=== PATIENT | female | born 1940 | race Caucasian/White ===

== ENCOUNTER 2018-09-28 21:03 | Emergency (ER) | payer MEDICARE ==
--- NOTE | 2018-09-28 22:57 | ER Document Report ---
ED Medical Screen (RME) - General Chief Complaint: Swallowed Foreign Body Stated Complaint: CHOKING Time Seen by Provider: 09/28/18 22:42 Notes: 78-year-old female with chief complaint of difficulty swallowing and weakness. Daughter states she has been acting somewhat strange today as well, not alert, patient reports to me she has a headache. She is not on a blood thinner. Patient has had esophageal obstruction with dilation in the past but daughter states she has not had any solid food, they tried giving her shake earlier and she sputtered and choked. No fever. No focal weakness. TRAVEL OUTSIDE OF THE [place] IN LAST 30 DAYS: No - Related Data Allergies/Adverse Reactions: cyclobenzaprine [From Flexeril] Allergy (Verified 09/28/18 22:52) Penicillins Allergy (Verified 09/28/18 22:52) Past Medical History - Social History Frequency of alcohol use: None Drug Abuse: None Renal/ Medical History: Denies: Hx Peritoneal Dialysis Physical Exam - Vital signs Vitals: Temp Pulse Resp BP Pulse Ox 97.4 F 79 16 155/97 H 99 09/28/18 21:11 09/28/18 21:11 09/28/18 21:11 09/28/18 21:11 09/28/18 21:11 - General General appearance: Other - Lying in the chair, seems slightly sedated - Respiratory Respiratory status: No respiratory distress Breath sounds: Normal. No: Decreased air movement, Wheezing Course - Re-evaluation Re-evalutation: Attempted to give patient water in triage, she choked, most of it came out of her mouth, she appears to be unable to swallow. Given her weakness, headache, inability to swallow will perform workup including CAT scan of the head and chest x-ray for aspiration. - Vital Signs Vital signs: Temp Pulse Resp BP Pulse Ox 97.4 F 79 16 155/97 H 99 09/28/18 21:11 09/28/18 21:11 09/28/18 21:11 09/28/18 21:11 09/28/18 21:11
--- NOTE | 2018-09-28 23:26 | ER Document Report ---
ED General - General Chief Complaint: Swallowed Foreign Body Stated Complaint: CHOKING Time Seen by Provider: 09/28/18 22:42 Notes: Patient is a 78-year-old female that presents to the emergency department for chief complaint of difficulty swallowing. Patient and the patient's daughter are providing history. Patient did have any symptoms over the course of the past week, where she has had some pain with swallowing. She has a history of esophageal stricture requiring dilatation. It seemed to be worse today, compared to other days this week. She states the pain is in the middle of her chest, and it hurts when she swallows even liquids. She did expectorate some liquids earlier today. The daughter states that she think this may be a symptom of the patient's dementia, that has seemingly been getting worse, she states that earlier today they told her that there going to bring her to the hospital if she would not drink, and then she drank an entire milkshake without any issues or difficulty swallowing at that time. She was seen in [place] in the past and that is when she had her dilatation. At this time the patient denies having any nausea, vomiting, abdominal pain or any recent dysuria or hematuria. Past Medical History: Dementia, diabetes, hypertension Past Surgical History: EGD with dilatation Social History: Denies tobacco, alcohol or drug use Family History: Reviewed and noncontributory for presenting illness Allergies: Reviewed, see documented allergy list. REVIEW OF SYSTEMS: Unless otherwise stated in this report the patient's positive and negative responses for review of systems for constitutional, eyes, ENT, cardiovascular, respiratory, gastrointestinal, neurological, genitourinary, musculoskeletal, and integumentary systems and related systems to the presenting problem are either as stated in the HPI or were not pertinent or were negative for the symptoms and/or complaints related to the presenting medical problem. PHYSICAL EXAMINATION: Vital signs reviewed, nursing noted reviewed. GENERAL: Elderly female, no acute distress HEAD: Atraumatic, normocephalic. EYES: Eyes appear normal, extraocular movements intact, sclera anicteric, conjunctiva are normal. ENT: nares patent, oropharynx clear without exudates. Moist mucous membranes. Controlling her saliva, and swallowing without difficulty NECK: Normal range of motion, supple without lymphadenopathy LUNGS: Breath sounds clear to auscultation bilaterally and equal. No wheezes rales or rhonchi. HEART: Regular rate and rhythm without murmurs ABDOMEN: Soft, obese, nontender, normoactive bowel sounds. No rebound, guarding , or rigidity. No masses appreciated. EXTREMITIES: Nontender, good range of motion, no pitting or edema. NEUROLOGICAL: No focal neurological deficits. Moves all extremities spontaneously Motor and sensory grossly intact on exam. PSYCH: Normal mood, normal affect. SKIN: Warm, Dry, normal turgor, no rashes or lesions noted on exposed skin TRAVEL OUTSIDE OF THE [place] IN LAST 30 DAYS: No - Related Data Allergies/Adverse Reactions: cyclobenzaprine [From Flexeril] Allergy (Verified 09/28/18 22:52) Penicillins Allergy (Verified 09/28/18 22:52) Past Medical History - Social History Smoking Status: Never Smoker Frequency of alcohol use: None Drug Abuse: None Family History: Reviewed & Not Pertinent Patient has suicidal ideation: No Patient has homicidal ideation: No Renal/ Medical History: Denies: Hx Peritoneal Dialysis Physical Exam - Vital signs Vitals: Temp Pulse Resp BP Pulse Ox 97.4 F 79 16 155/97 H 99 09/28/18 21:11 09/28/18 21:11 09/28/18 21:11 09/28/18 21:11 09/28/18 21:11 Course - Re-evaluation Re-evalutation: Patient seen and examined vital signs reviewed. Laboratory data and imaging were ordered as appropriate for the patient's presenting symptoms and complaint, with consideration of any critical or life threatening conditions that may be associated with their obtained history and exam as noted above. Patient was treated with IV fluids, and IV glucagon 2 mg Results were reviewed when available and demonstrated unremarkable blood work, negative chest x-ray, UA was positive for signs of urinary tract infection which may be contributing to the patient's decreased fluid intake, patient given a dose of doxycycline 100 mg in the ED The patient was re-evaluated and was improved, sitting up at bedside, able to swallow pills, Evaluation was most consistent with dysphagia, urinary tract infection, discussed plan of care with the patient patient's daughter is at bedside, they plan to follow-up with gastroenterology, given a prescription for doxycycline. Results were discussed with the patient at this point, after careful consideration I feel that that patient can be discharged from the emergency department, the patient was educated treatments and reasons to return to the emergency department based on their presumed diagnosis as noted above, they were advised to followup with a primary care physician in 2-3 days. Patient was agreeable to plan of care. *Note is created using voice recognition software and may contain spelling, syntax or grammatical errors. Laboratory 09/28/18 09/28/18 09/29/18 23:12 23:12 00:42 WBC 5.5 RBC 3.72 Hgb 8.1 L Hct 25.4 L MCV 68 L MCH 21.8 L MCHC 31.8 L RDW 20.2 H Plt Count 367 Seg Neutrophils % 65.7 Lymphocytes % 24.3 Monocytes % 7.2 Eosinophils % 2.1 Basophils % 0.7 Absolute Neutrophils 3.6 Absolute Lymphocytes 1.3 Absolute Monocytes 0.4 Absolute Eosinophils 0.1 Absolute Basophils 0.0 Sodium 134.3 L Potassium 3.9 Chloride 91 L Carbon Dioxide 29 Anion Gap 14 BUN 15 Creatinine 1.48 H Est GFR ( Amer) 41 L Est GFR (Non-Af Amer) 34 L Glucose 99 Calcium 10.1 Total Bilirubin 0.6 Direct Bilirubin 0.2 Neonat Total Bilirubin Not Reportable Neonat Direct Bilirubin Not Reportable Neonat Indirect Bili Not Reportable AST 33 ALT 27 Alkaline Phosphatase 80 Total Protein 7.3 Albumin 4.2 Urine Color YELLOW Urine Appearance SLIGHTLY-CLOUDY Urine pH 6.0 Ur Specific [place] 1.005 Urine Protein NEGATIVE Urine Glucose (UA) NEGATIVE Urine Ketones NEGATIVE Urine Blood NEGATIVE Urine Nitrite NEGATIVE Urine Bilirubin NEGATIVE Urine Urobilinogen NEGATIVE Ur Leukocyte Esterase LARGE H Urine WBC (Auto) 11 Urine Bacteria (Auto) 1+ Squamous Epi Cells Auto 10 Urine Mucus (Auto) RARE Urine Ascorbic Acid NEGATIVE Chest X-Ray 09/28/18 22:51 IMPRESSION: No acute disease. Head CT 09/28/18 22:51 IMPRESSION: No acute intracranial hemorrhage. Mild chronic ischemic changes. - Vital Signs Vital signs: Temp Pulse Resp BP Pulse Ox 98.6 F 73 16 161/74 H 97 09/29/18 01:44 09/29/18 01:44 09/29/18 01:44 09/29/18 01:44 09/29/18 01:44 - Laboratory Result Diagrams: 09/28/18 23:12 09/28/18 23:12 Laboratory results interpreted by me: 09/28/18 09/28/18 09/29/18 23:12 23:12 00:42 Hgb 8.1 L Hct 25.4 L MCV 68 L MCH 21.8 L MCHC 31.8 L RDW 20.2 H Sodium 134.3 L Chloride 91 L Creatinine 1.48 H Est GFR ( Amer) 41 L Est GFR (Non-Af Amer) 34 L Ur Leukocyte Esterase LARGE H Discharge - Discharge Clinical Impression: Dysphagia Qualifiers: Dysphagia type: unspecified Qualified Code(s): R13.10 - Dysphagia, unspecified UTI (urinary tract infection) Qualifiers: Urinary tract infection type: site unspecified Hematuria presence: with hematuria Qualified Code(s): N39.0 - Urinary tract infection, site not specified Condition: Stable Disposition: HOME, SELF-CARE Instructions: Urinary Tract Infection ([facility]) Additional Instructions: Please return to the emergency department if you have any worsening, or concern of your symptoms. Please return to the emergency department if you develop chest pain, difficulty breathing, severe abdominal pain, or ongoing vomiting. Please follow-up with your primary care physician in 2-3 days and any other recommended physicians. If prescribed, take all medications as directed. If you have any questions or concerns do not hesitate to return the emergency department for evaluation. Please follow-up in [place], if you continue to have difficulty swallowing, please take the antibiotic as prescribed, for the urinary tract infection. Prescriptions: Doxycycline Hyclate 100 mg PO BID #14 capsule Referrals: DEBBIE WADDELL MD [COMMUNITY BASED STAFF] - Follow up tomorrow (or your primary care. ) DMITRY EGAN MD [ACTIVE STAFF] - Follow up as needed (gastroenterology )
[2018-09-28 23:33] LABS: ABSOLUTE EOSINOPHILS # (AUTO) 0.1 10^3/uL (0.0-0.6); ABSOLUTE LYMPHOCYTES (AUTO) 1.3 10^3/uL (0.5-4.7); ABSOLUTE MONOCYTES (AUTO) 0.4 10^3/uL (0.1-1.4); ABSOLUTE NEUT (AUTO) 3.6 10^3/uL (1.7-8.2); BASOPHILS % (AUTO) 0.7 % (0-2); EOSINOPHILS % (AUTO) 2.1 % (0-6); HEMATOCRIT 25.4 % (36.0-47.0); HEMOGLOBIN 8.1 g/dL (12.0-15.5); LYMPHOCYTES % (AUTO) 24.3 % (13-45); MEAN CORPUSCULAR HEMOGLOBIN 21.8 pg (27.0-33.4); MEAN CORPUSCULAR HGB CONC 31.8 g/dL (32.0-36.0); MEAN CORPUSCULAR VOLUME 68 fl (80-97); MONOCYTES % (AUTO) 7.2 % (3-13); PLATELET COUNT 367 10^3/uL (150-450); RED BLOOD COUNT 3.72 10^6/uL (3.72-5.28); RED CELL DISTRIBUTION WIDTH 20.2 % (11.5-14.0); SEGMENTED NEUTROPHILS % (AUTO) 65.7 % (42-78); TOTAL CELLS COUNTED % (AUTO) 100 %; WHITE BLOOD COUNT 5.5 10^3/uL (4.0-10.5)
--- NOTE | 2018-09-28 23:39 | RADIOLOGY REPORT (SQ) ---
EXAM DESCRIPTION: CT HEAD WITHOUT IV CONTRAST COMPLETED DATE/TME: 09/28/2018 22:51 CLINICAL HISTORY: 78 years, Female, headache, weakness, can't swallow This exam was performed according to our departmental dose-optimization program which includes automated exposure control, adjustment of the mA and/or kVp according to patient size and/or use of iterative reconstruction technique where applicable. Findings: No acute intracranial hemorrhage, mass effect or midline shift. No extra-axial fluid collections. Ventricles and subarachnoid spaces are mildly dilated consistent with cerebral atrophy. Mild patchy hypodense areas in the periventricular white matter of both cerebral hemispheres consistent with chronic small vessel ischemic changes. Visualized paranasal sinuses and the mastoid air cells are clear. The skull is intact. IMPRESSION: No acute intracranial hemorrhage. Mild chronic ischemic changes.
--- NOTE | 2018-09-28 23:40 | RADIOLOGY REPORT (SQ) ---
EXAM DESCRIPTION: XR CHEST 1 VIEW COMPLETED DATE/TME: 09/28/2018 22:51 CLINICAL HISTORY: 78 years, Female, ? aspiration Findings: The heart is not enlarged. No consolidation or pleural effusion. No pulmonary edema or pneumothorax. IMPRESSION: No acute disease.
[2018-09-28 23:54] LABS: ALANINE AMINOTRANSFERASE 27 U/L (9-52); ALBUMIN 4.2 g/dL (3.5-5.0); ALKALINE PHOSPHATASE 80 U/L (38-126); ANION GAP 14 (5-19); ASPARTATE AMINO TRANSFERASE 33 U/L (14-36); BILIRUBIN,DIRECT 0.2 mg/dL (0.0-0.4); BILIRUBIN,TOTAL 0.6 mg/dL (0.2-1.3); BLOOD UREA NITROGEN 15 mg/dL (7-20); CALCIUM 10.1 mg/dL (8.4-10.2); CARBON DIOXIDE 29 mmol/L (22-30); CHLORIDE 91 mmol/L (98-107); GLUCOSE 99 mg/dL (75-110); POTASSIUM 3.9 mmol/L (3.6-5.0); SODIUM 134.3 mmol/L (137-145); TOTAL PROTEIN 7.3 g/dL (6.3-8.2)
[2018-09-29] MEDS ORDERED: GLUCAGON,HUMAN RECOMB 1 MG INJ IV STA (00:05)
[2018-09-29] MEDS ORDERED: NORMAL SALINE 500 ML IV ONE (00:05)
[2018-09-29 00:53] LABS: APPEARANCE,URINE SLIGHTLY-CLOUDY; BILIRUBIN,URINE NEGATIVE (NEGATIVE); COLOR,URINE YELLOW; GLUCOSE, URINE NEGATIVE (NEGATIVE); KETONES,URINE NEGATIVE (NEGATIVE); LEUKOCYTE ESTERASE,URINE LARGE (NEGATIVE); NITRITE,URINE NEGATIVE (NEGATIVE); PROTEIN,URINE NEGATIVE (NEGATIVE); URINE SPECIFIC GRAVITY 1.005; UROBILINOGEN,URINE NEGATIVE mg/dL (<2.0)
[2018-09-29] MEDS ORDERED: DOXYCYCLINE HYCLATE 100 MG TABLET PO ONE (01:12)
[2018-09-29 01:45] VITALS: BP 161/74
== END 2018-09-29 01:45 | disposition home or self-care (01) ==
LOC: ER 21:03
DX: R13.10 Dysphagia, unspecified (principal); N39.0 Urinary tract infection, site not specified; R31.9 Hematuria, unspecified; R07.9 Chest pain, unspecified; F03.90 Unspecified dementia, unspecified severity, without behavioral disturbance, psychotic disturbance, mood disturbance, and anxiety; E11.9 Type 2 diabetes mellitus without complications; I10 Essential (primary) hypertension; Z87.19 Personal history of other diseases of the digestive system; Z98.890 Other specified postprocedural states; Z88.8 Allergy status to other drugs, medicaments and biological substances; Z88.0 Allergy status to penicillin
CPT/HCPCS: 99284; 96361; 96374; 36415; 87086; 85025; 80053; 81001; 71045; 70450; A9270; J1610; J7040

== ENCOUNTER 2018-10-04 19:45 | Emergency (ER) | payer MEDICARE ==
[2018-10-04] MEDS ORDERED: MAG HYDROX/AL HYDROX/SIMETH SUSP 30 ML UDCUP PO ONE (23:14)
[2018-10-04] MEDS ORDERED: LIDOCAINE 2% VISCOUS SOLN 20 ML UDCUP PO ONE (23:14)
[2018-10-04] MEDS ORDERED: METOCLOPRAMIDE HCL ORAL SOLN 10 MG/10 ML UDCUP PO ONE (23:14)
--- NOTE | 2018-10-04 23:15 | ER Document Report ---
ED General - General Chief Complaint: Difficulty Swallowing Stated Complaint: DIFFICULTY SWALLOWING Time Seen by Provider: 10/04/18 20:39 Cannot obtain history due to: Dementia Notes: Patient is a 78-year-old female with a past medical history of dementia, hypertension, presents to the emergency department with concerns of intermittent inability to swallow and complaints of throat pain. She was seen in the emergency department 4 days ago for the same complaint, apparently has been eating and drinking without difficulty since that time but still continues intermittently complain that she feels something is stuck in her throat that she cannot swallow. History is substantially limited as the granddaughter who is with the patient is not regularly with her and the patient is demented. She currently believes the year is 1912 and is unable to provide any reasonable history. TRAVEL OUTSIDE OF THE [place] IN LAST 30 DAYS: No - Related Data Allergies/Adverse Reactions: cyclobenzaprine [From Flexeril] Allergy (Verified 09/28/18 22:52) Penicillins Allergy (Verified 09/28/18 22:52) Past Medical History - General Information source: Patient, Relative - Social History Smoking Status: Never Smoker Frequency of alcohol use: None Drug Abuse: None Lives with: Family Family History: Reviewed & Not Pertinent Patient has suicidal ideation: No Patient has homicidal ideation: No Renal/ Medical History: Denies: Hx Peritoneal Dialysis Review of Systems - Review of Systems Notes: Constitutional: Negative for fever. HENT: Positive for dysphasia, sensation of foreign body in the throat Eyes: Negative for visual changes. Cardiovascular: Negative for chest pain. Respiratory: Negative for shortness of breath. Gastrointestinal: Negative for abdominal pain, vomiting or diarrhea. Genitourinary: Negative for dysuria. Musculoskeletal: Negative for back pain. Skin: Negative for rash. Neurological: Negative for headaches, weakness or numbness. 10 point ROS negative except as marked above and in HPI. Physical Exam - Vital signs Vitals: Temp Pulse Resp BP Pulse Ox 97.6 F 98 20 158/89 H 100 10/04/18 19:56 10/04/18 19:56 10/04/18 19:56 10/04/18 19:56 10/04/18 19:56 Interpretation: Hypertensive Notes: PHYSICAL EXAMINATION: GENERAL: Well-appearing, well-nourished and in no acute distress. HEAD: Atraumatic, normocephalic. EYES: Pupils equal round and reactive to light, extraocular movements intact, sclera anicteric, conjunctiva are normal. ENT: nares patent, oropharynx clear without exudates. Moist mucous membranes. NECK: Normal range of motion, supple without lymphadenopathy, no stridor, no apparent difficulty swallowing LUNGS: Breath sounds clear to auscultation bilaterally and equal. No wheezes rales or rhonchi. HEART: Regular rate and rhythm without murmurs ABDOMEN: Soft, nontender, normoactive bowel sounds. No guarding, no rebound. No masses appreciated. EXTREMITIES: Normal range of motion, no pitting or edema. No cyanosis. NEUROLOGICAL: No focal neurological deficits. Moves all extremities spontaneously and on command. PSYCH: Alert, oriented only to person SKIN: Warm, Dry, normal turgor, no rashes or lesions noted. Course - Re-evaluation Re-evalutation: 10/04/18 23:15 Patient presents with reports that she is unable to swallow although this appears intermittent based on family history. Of note the patient was swallowing without any apparent difficulty when I walk past the room to go see another patient and then when I walked into the room the patient began grabbing in her throat, stating that she feels like she could not swallow. The nurse did attempt a swallow study and the patient spit the water back out of her without making any attempt to swallow. I do suspect that some of this is related to the patient's underlying dementia as she is profoundly demented on exam. She thinks it is 1914, does not know the city that were currently reside in. I do not see an indication to repeat labs today, family has declined repeat labs. Patient ready has scheduled follow-up with GI for endoscopy in 48 hours. I recommended soft, pured liquids at home. - Vital Signs Vital signs: Temp Pulse Resp BP Pulse Ox 97.7 F 89 18 160/81 H 100 10/04/18 23:28 10/04/18 23:28 10/04/18 23:28 10/04/18 23:28 10/04/18 23:28 Discharge - Discharge Clinical Impression: Dysphagia Qualifiers: Dysphagia type: unspecified Qualified Code(s): R13.10 - Dysphagia, unspecified Dementia Qualifiers: Dementia type: unspecified type Dementia behavioral disturbance: with behavioral disturbance Qualified Code(s): F03.91 - Unspecified dementia with behavioral disturbance Condition: Good Disposition: HOME, SELF-CARE Additional Instructions: Please follow-up with the GI doctor regarding your difficulty swallowing as you may need a repeat endoscopy and dilation. In the interim please try to eat soft foods and liquids. Crush medications in the substances to be able to take them.
[2018-10-04 23:29] VITALS: BP 160/81
== END 2018-10-04 23:48 | disposition home or self-care (01) ==
LOC: ER 19:45
DX: R13.10 Dysphagia, unspecified (principal); F03.91 Unspecified dementia, unspecified severity, with behavioral disturbance
CPT/HCPCS: 99284; J3490; A9270

== ENCOUNTER 2018-10-06 12:23 | Emergency (ER) | payer MEDICARE ==
--- NOTE | 2018-10-06 12:54 | ER Document Report ---
ED General - General Mode of Arrival: Medic Information source: Patient TRAVEL OUTSIDE OF THE [place] IN LAST 30 DAYS: No <CARLOS ROA - Last Filed: 10/06/18 14:23> <ABILIO ALDRICH - Last Filed: 10/06/18 16:39> - General Stated Complaint: FALL,RIGHT HIP,SHOULDER PAIN Time Seen by Provider: 10/06/18 12:49 Notes: 78-year-old female who presents to the emergency department today with complaints of pain basically all over. Patient is demented so history is limited. Per EMS, there was a fall prior to their arrival. Patient complains of a headache, neck pain, bilateral shoulder pain, bilateral wrist pain, and bilateral hip pain. Patient moans when touched in any of these locations. ( CARLOS ROA) 78-year-old female patient with dementia is brought the emergency room after suffering a fall at home by EMS. Family did not come in with her at this time. She initially would not really try to answer any questions until she was made uncomfortable. Then she would respond. She complains of headache which she did on her prior to ER visits recently. She complains of severe pain when her body is palpated anywhere. Specifically when I hold her wrist to examine it she pulls away almost violently suggesting there really is no injury to her shoulders elbows or wrists. She also reacts similarly to palpation and manipulation of the hips and knees. When the bed was slightly elevated she cried out in pain from her back hurting. (ABILIO ALDRICH) - Related Data Allergies/Adverse Reactions: cyclobenzaprine [From Flexeril] Allergy (Verified 09/28/18 22:52) Penicillins Allergy (Verified 09/28/18 22:52) Past Medical History - General Information source: [facility] Records Cannot obtain history due to: Dementia - Social History Smoking Status: Unknown if Ever Smoked Lives with: Family Family History: Reviewed & Not Pertinent - Past Medical History Cardiac Medical History: Reports: Hx Hypercholesterolemia Endocrine Medical History: Reports: Hx Hypothyroidism GI Medical History: Reports: Hx Gastroesophageal Reflux Disease <CARLOS ROA - Last Filed: 10/06/18 14:23> Review of Systems - Review of Systems -: Yes ROS unobtainable due to patient's medical condition - demented <CARLOS ROA - Last Filed: 10/06/18 14:23> Physical Exam <CARLOS ROA - Last Filed: 10/06/18 14:23> <ABILIO ALDRICH - Last Filed: 10/06/18 16:39> - Vital signs Vitals: Resp 20 10/06/18 12:33 - Notes Notes: Physical Exam: General: Demented. HEENT: Normocephalic. Atraumatic. PERRL. Extraocular movements intact. Oropharynx clear. Neck: Supple. Non-tender. Respiratory: No respiratory distress. Clear and equal breath sounds bilaterally. Cardiovascular: Regular rate and rhythm. Abdominal: Obese. Non-tender. No distension. Normal Bowel Sounds. Back: Non-tender. No deformity or step off. Extremities: Upper extremities: Pulls left forearm towards chest against resistance without difficulty. Screams out with palpation of bilateral shoulders and wrists. Lower extremities: Screams out with pain of palpation of bilateral hips. Pelvic sling removed and there was no pain when pressure was released. Neurological: Demented Psychological: Demented Skin: Warm. Dry. Normal color. (CARLOS ROA) Course <CARLOS ROA - Last Filed: 10/06/18 14:23> - Laboratory Result Diagrams: 10/06/18 14:36 10/06/18 14:36 - Diagnostic Test Radiology reviewed: Image reviewed, Reports reviewed - X-rays of the lumbar sacral spine, both hips, both shoulders, and pelvis do not show fractures. - EKG Interpretation by Me EKG shows normal: Sinus rhythm, [place], QRS Complexes, ST-T Waves. abnormal: Intervals - Borderline prolonged QT interval Rate: Normal - 96 Rhythm: NSR <ABILIO ALDRICH - Last Filed: 10/06/18 16:39> - Re-evaluation Re-evalutation: 10/06/18 16:38 Patient's family member has arrived now. She reports that the patient complains of pain all over all the time and this is nothing new. She cannot give me much details about the fall. She does relate that the patient has moved into this area recently. Her primary care provider is in [place], [place], as it was a provider from the [facility] that moved to [place]. She is working to try to obtain a primary care provider in this area. (ABILIO ALDRICH) - Vital Signs Vital signs: Temp Pulse Resp BP Pulse Ox 100 15 179/79 H 98 10/06/18 13:00 10/06/18 14:00 10/06/18 14:00 10/06/18 14:00 - Laboratory Laboratory results interpreted by me: 10/06/18 10/06/18 14:36 14:36 RBC 3.55 L Hgb 7.8 L Hct 24.4 L MCV 69 L MCH 22.1 L RDW 20.5 H Creatinine 1.49 H Est GFR ( Amer) 41 L Est GFR (Non-Af Amer) 34 L Creatine Kinase 335 H Discharge <CARLOS ROA - Last Filed: 10/06/18 14:23> <ABILIO ALDRICH - Last Filed: 10/06/18 16:39> - Discharge Clinical Impression: Generalized pain Fall Qualifiers: Encounter type: initial encounter Qualified Code(s): W19.XXXA - Unspecified fall, initial encounter Condition: Stable Disposition: HOME, SELF-CARE Additional Instructions: Your physical exam today showed you were having pain and nearly every part of your body. X-rays of your shoulders, hips, lumbar spine and pelvis did not show fractures. You should continue your regular medications when you return home. Take Tylenol for additional pain relief if needed. Follow-up with a local medical doctor if not improving. RETURN TO THE EMERGENCY ROOM IF ANY NEW OR WORSENING SYMPTOMS. Scribe Attestation: 10/06/18 14:11 I personally performed the services described in the documentation, reviewed and edited the documentation which was dictated to the scribe in my presence, and it accurately records my words and actions. (ABILIO ALDRICH) Scribe Documentation - Scribe Written by Almazibe:: Farzad Duggan, 10/06/2018 1407 acting as scribe for :: Lyric <CARLOS ROA - Last Filed: 10/06/18 14:23>
--- NOTE | 2018-10-06 13:33 | RADIOLOGY REPORT (SQ) ---
EXAM DESCRIPTION: SHOULDER RIGHT 2 OR MORE VIEWS COMPLETED DATE/TIME: 10/06/2018 1:19 pm REASON FOR STUDY: pain with palpation, fall COMPARISON: None. NUMBER OF VIEWS: Three views. TECHNIQUE: Internal rotation, external rotation, and Y view images acquired of the right shoulder. LIMITATIONS: None. FINDINGS: MINERALIZATION: Normal. BONES: No acute fracture or dislocation. No worrisome bone lesions. JOINTS: No dislocation. VISUALIZED LUNGS AND RIBS: No pneumothorax. No rib fracture. SOFT TISSUES: No radiopaque foreign body. OTHER: No other significant finding. IMPRESSION: NEGATIVE STUDY OF THE RIGHT SHOULDER. NO RADIOGRAPHIC EVIDENCE OF ACUTE INJURY. TECHNICAL DOCUMENTATION: JOB ID: [id number] [employer]- All Rights Reserved Reading location - IP/workstation name: [email or web address]
--- NOTE | 2018-10-06 13:33 | RADIOLOGY REPORT (SQ) ---
EXAM DESCRIPTION: HIP RIGHT AP/LATERAL COMPLETED DATE/TIME: 10/06/2018 1:19 pm REASON FOR STUDY: pain with palpation, fall COMPARISON: None. NUMBER OF VIEWS: Two views. TECHNIQUE: AP pelvis and additional frog-leg view of the right hip. LIMITATIONS: None. FINDINGS: MINERALIZATION: Normal. RIGHT HIP: No fracture or dislocation. No worrisome bone lesions. LEFT HIP: No fracture or dislocation. No worrisome bone lesions. PUBIS AND ISCHIUM: No fracture. PELVIS: No fracture. SACRUM: No fracture or dislocation. No worrisome bone lesions. LOWER LUMBAR SPINE: No fracture or dislocation. No worrisome bone lesions. No significant disc disea se. SOFT TISSUES: No findings. OTHER: No other significant finding. IMPRESSION: NEGATIVE STUDY OF THE RIGHT HIP. NO RADIOGRAPHIC EVIDENCE OF ACUTE INJURY. TECHNICAL DOCUMENTATION: JOB ID: [id number] [employer]- All Rights Reserved Reading location - IP/workstation name: [email or web address]
[2018-10-06 15:01] LABS: ABSOLUTE LYMPHOCYTES (AUTO) 1.5 10^3/uL (0.5-4.7); ABSOLUTE MONOCYTES (AUTO) 0.5 10^3/uL (0.1-1.4); ABSOLUTE NEUT (AUTO) 3.5 10^3/uL (1.7-8.2); BASOPHILS % (AUTO) 0.6 % (0-2); EOSINOPHILS % (AUTO) 0.6 % (0-6); HEMATOCRIT 24.4 % (36.0-47.0); LYMPHOCYTES % (AUTO) 27.8 % (13-45); MEAN CORPUSCULAR HEMOGLOBIN 22.1 pg (27.0-33.4); MEAN CORPUSCULAR HGB CONC 32.1 g/dL (32.0-36.0); MEAN CORPUSCULAR VOLUME 69 fl (80-97); MONOCYTES % (AUTO) 8.5 % (3-13); PLATELET COUNT 357 10^3/uL (150-450); RED BLOOD COUNT 3.55 10^6/uL (3.72-5.28); RED CELL DISTRIBUTION WIDTH 20.5 % (11.5-14.0); SEGMENTED NEUTROPHILS % (AUTO) 62.5 % (42-78); TOTAL CELLS COUNTED % (AUTO) 100 %; WHITE BLOOD COUNT 5.6 10^3/uL (4.0-10.5)
[2018-10-06 15:10] LABS: APPEARANCE,URINE CLEAR; BILIRUBIN,URINE NEGATIVE (NEGATIVE); COLOR,URINE STRAW; GLUCOSE, URINE NEGATIVE (NEGATIVE); KETONES,URINE NEGATIVE (NEGATIVE); LEUKOCYTE ESTERASE,URINE NEGATIVE (NEGATIVE); NITRITE,URINE NEGATIVE (NEGATIVE); PROTEIN,URINE NEGATIVE (NEGATIVE); URINE SPECIFIC GRAVITY 1.003; UROBILINOGEN,URINE NEGATIVE mg/dL (<2.0)
[2018-10-06 15:16] LABS: HEMOGLOBIN 7.8 g/dL (12.0-15.5)
[2018-10-06 15:23] LABS: ALANINE AMINOTRANSFERASE 27 U/L (9-52); ALBUMIN 3.8 g/dL (3.5-5.0); ALKALINE PHOSPHATASE 76 U/L (38-126); ANION GAP 14 (5-19); ASPARTATE AMINO TRANSFERASE 34 U/L (14-36); BILIRUBIN,DIRECT 0.2 mg/dL (0.0-0.4); BILIRUBIN,TOTAL 0.5 mg/dL (0.2-1.3); BLOOD UREA NITROGEN 9 mg/dL (7-20); CALCIUM 8.6 mg/dL (8.4-10.2); CARBON DIOXIDE 29 mmol/L (22-30); CHLORIDE 98 mmol/L (98-107); CREATINE KINASE 335 U/L (30-135); GLUCOSE 85 mg/dL (75-110); POTASSIUM 3.7 mmol/L (3.6-5.0); SODIUM 140.7 mmol/L (137-145); TOTAL PROTEIN 6.6 g/dL (6.3-8.2)
--- NOTE | 2018-10-06 15:30 | RADIOLOGY REPORT (SQ) ---
EXAM DESCRIPTION: L SPINE WHOLE COMPLETED DATE/TIME: 10/06/2018 3:13 pm REASON FOR STUDY: Fall, dementia,c/o back pain, bilat hip pain COMPARISON: None. NUMBER OF VIEWS: Five views including obliques. TECHNIQUE: AP, lateral, oblique, and sacral radiographic images acquired of the lumbar spine. LIMITATIONS: None. FINDINGS: MINERALIZATION: Normal. SEGMENTATION: Normal. No transitional anatomy. ALIGNMENT: Mild levoscoliosis. Grade 1 anterolisthesis of L4 on L5. VERTEBRAE: Anterior wedging of L1 that does not appear to be acute. DISCS: All the lumbar disc spaces are narrowed to some degree, most prominently at L2-3. Small radha nal osteophytes are present in the upper lumbar spine. POSTERIOR ELEMENTS: Hypertrophic facet changes from L4-S1. HARDWARE: None in the spine. PARASPINAL SOFT TISSUES: Normal. PELVIS: Intact as visualized. No fractures or worrisome bone lesions. SI joints intact. OTHER: No other significant finding. IMPRESSION: Scoliosis, anterolisthesis of L4 on L5, multilevel degenerative disc disease and spondyl osis. Facet arthropathy. TECHNICAL DOCUMENTATION: JOB ID: [id number]- All Rights Reserved Reading location - IP/workstation name: [email or web address]
--- NOTE | 2018-10-06 15:31 | RADIOLOGY REPORT (SQ) ---
EXAM DESCRIPTION: HIP LEFT AP/LATERAL COMPLETED DATE/TIME: 10/06/2018 3:14 pm REASON FOR STUDY: Fall, dementia,c/o back pain, bilat hip pain COMPARISON: None. NUMBER OF VIEWS: Two views. TECHNIQUE: AP pelvis and additional frog-leg view of the left hip. LIMITATIONS: None. FINDINGS: MINERALIZATION: Normal. LEFT HIP: No fracture or dislocation. No worrisome bone lesions. RIGHT HIP: No fracture or dislocation. No worrisome bone lesions. PUBIS AND ISCHIUM: No fracture. PELVIS: No fracture. SACRUM: No fracture or dislocation. No worrisome bone lesions. LOWER LUMBAR SPINE: No fracture or dislocation. No worrisome bone lesions. No significant disc disea se. SOFT TISSUES: No findings. OTHER: No other significant finding. IMPRESSION: NEGATIVE STUDY OF THE LEFT HIP AND PELVIS. NO RADIOGRAPHIC EVIDENCE OF ACUTE INJURY. TECHNICAL DOCUMENTATION: JOB ID: [id number] [employer]- All Rights Reserved Reading location - IP/workstation name: [email or web address]
--- NOTE | 2018-10-06 15:32 | RADIOLOGY REPORT (SQ) ---
EXAM DESCRIPTION: SHOULDER LEFT 2 OR MORE VIEWS COMPLETED DATE/TIME: 10/06/2018 3:14 pm REASON FOR STUDY: Fall, complains of bilateral shoulder pain COMPARISON: None. NUMBER OF VIEWS: Three views. TECHNIQUE: Internal rotation, external rotation, and Y view images acquired of the left shoulder. LIMITATIONS: None. FINDINGS: MINERALIZATION: Normal. BONES: No acute fracture or dislocation. No worrisome bone lesions. JOINTS: Mild glenohumeral degenerative joint changes. Mild acromioclavicular degenerative joint mason ges. VISUALIZED LUNGS AND RIBS: No pneumothorax. No rib fracture. SOFT TISSUES: No radiopaque foreign body. OTHER: No other significant finding. IMPRESSION: Degenerative joint disease. No acute abnormality. TECHNICAL DOCUMENTATION: JOB ID: [id number] [employer]- All Rights Reserved Reading location - IP/workstation name: [email or web address]
[2018-10-06 15:51] LABS: CREATINE KINASE MB 3.55 ng/mL (<4.55); TROPONIN I 0.033 ng/mL
[2018-10-06 17:14] VITALS: BP 157/82
--- NOTE | 2018-10-06 18:10 | EKG REPORT ---
SEVERITY:- BORDERLINE ECG - SINUS RHYTHM BORDERLINE PROLONGED QT INTERVAL : Confirmed by: Samir Johnson MD 06-Oct-2018 18:09:04
== END 2018-10-06 17:09 | disposition home or self-care (01) ==
LOC: ER 12:23
DX: M25.551 Pain in right hip (principal); R51 Headache; M54.2 Cervicalgia; M25.512 Pain in left shoulder; M25.511 Pain in right shoulder; W19.XXXA Unspecified fall, initial encounter
CPT/HCPCS: 36415; 51701; 72110; 80053; 81001; 82550; 82553; 84484; 85025; 93005; 93010; 99284

== ENCOUNTER 2018-11-17 15:54 | Inpatient (IN) | payer MEDICARE ==
[2018-11-17 16:38] LABS: ABSOLUTE LYMPHOCYTES (AUTO) 0.8 10^3/uL (0.5-4.7); ABSOLUTE MONOCYTES (AUTO) 0.5 10^3/uL (0.1-1.4); ABSOLUTE NEUT (AUTO) 8.1 10^3/uL (1.7-8.2); BASOPHILS % (AUTO) 0.2 % (0-2); EOSINOPHILS % (AUTO) 0.2 % (0-6); HEMATOCRIT 29.7 % (36.0-47.0); HEMOGLOBIN 9.1 g/dL (12.0-15.5); LYMPHOCYTES % (AUTO) 8.4 % (13-45); MEAN CORPUSCULAR HEMOGLOBIN 21.9 pg (27.0-33.4); MEAN CORPUSCULAR HGB CONC 30.8 g/dL (32.0-36.0); MEAN CORPUSCULAR VOLUME 71 fl (80-97); MONOCYTES % (AUTO) 5.3 % (3-13); PLATELET COUNT 338 10^3/uL (150-450); RED BLOOD COUNT 4.17 10^6/uL (3.72-5.28); RED CELL DISTRIBUTION WIDTH 19.2 % (11.5-14.0); SEGMENTED NEUTROPHILS % (AUTO) 85.9 % (42-78); TOTAL CELLS COUNTED % (AUTO) 100 %; WHITE BLOOD COUNT 9.5 10^3/uL (4.0-10.5)
[2018-11-17 16:56] LABS: ALANINE AMINOTRANSFERASE 10 U/L (9-52); ALBUMIN 4.6 g/dL (3.5-5.0); ALKALINE PHOSPHATASE 89 U/L (38-126); ANION GAP 8 (5-19); ASPARTATE AMINO TRANSFERASE 24 U/L (14-36); BILIRUBIN,DIRECT 0.4 mg/dL (0.0-0.4); BILIRUBIN,TOTAL 0.8 mg/dL (0.2-1.3); BLOOD UREA NITROGEN 32 mg/dL (7-20); CARBON DIOXIDE 39 mmol/L (22-30); CHLORIDE 94 mmol/L (98-107); GLUCOSE 113 mg/dL (75-110); POTASSIUM 3.8 mmol/L (3.6-5.0); SODIUM 140.5 mmol/L (137-145)
[2018-11-17 17:00] LABS: APPEARANCE,URINE CLEAR; BILIRUBIN,URINE NEGATIVE (NEGATIVE); COLOR,URINE YELLOW; GLUCOSE, URINE NEGATIVE (NEGATIVE); KETONES,URINE NEGATIVE (NEGATIVE); LEUKOCYTE ESTERASE,URINE TRACE (NEGATIVE); NITRITE,URINE NEGATIVE (NEGATIVE); PROTEIN,URINE NEGATIVE (NEGATIVE); URINE SPECIFIC GRAVITY 1.011; UROBILINOGEN,URINE NEGATIVE mg/dL (<2.0)
[2018-11-17 17:03] LABS: ALCOHOL < 10 mg/dL (NONE DETECTED)
[2018-11-17 17:05] LABS: CALCIUM 12.7 mg/dL (8.4-10.2)
[2018-11-17 17:13] LABS: URINE AMPHETAMINES SCREEN NEGATIVE; URINE BARBITURATES SCREEN NEGATIVE; URINE BENZODIAZEPINES SCREEN NEGATIVE; URINE COCAINE SCREEN NEGATIVE; URINE MARIJUANA (THC) SCREEN NEGATIVE; URINE METHADONE SCREEN NEGATIVE; URINE PHENCYCLIDINE SCREEN NEGATIVE
[2018-11-17] MEDS ORDERED: NORMAL SALINE 1000 ML 1,000 ML IV ONE ×2 (17:57→18:28)
--- NOTE | 2018-11-17 17:59 | ER Document Report ---
ED General - General Chief Complaint: Altered Mental Status Stated Complaint: ALTERED MENTAL STATUS Time Seen by Provider: 11/17/18 17:06 Mode of Arrival: Ambulatory Information source: Patient Notes: 78-year-old female with a history of dementia, hypertension who presents to the emergency room with decreased p.o. intake, increased weakness, increased lethargy, decreased interactions. Patient's daughter is at the bedside and states that her baseline is that she does ambulate with a cane but is not that active. But there has been a change from her baseline. They deny any chest pain, shortness of breath. TRAVEL OUTSIDE OF THE [place] IN LAST 30 DAYS: No - HPI Onset: Last week Onset/Duration: Gradual Quality of pain: No pain Severity: None Pain Level: Denies Associated symptoms: denies: Chest pain, Fever, Shortness of breath Exacerbated by: Denies Relieved by: Denies Similar symptoms previously: Yes Recently seen / treated by doctor: No - Related Data Allergies/Adverse Reactions: cyclobenzaprine [From Flexeril] Allergy (Verified 09/28/18 22:52) Penicillins Allergy (Verified 09/28/18 22:52) Past Medical History - General Information source: Patient, Relative - Social History Smoking Status: Unknown if Ever Smoked Cigarette use (# per day): No Chew tobacco use (# tins/day): No Frequency of alcohol use: None Drug Abuse: None Lives with: Family Family History: Reviewed & Not Pertinent Patient has suicidal ideation: No Patient has homicidal ideation: No - Past Medical History Cardiac Medical History: Reports: Hx Hypercholesterolemia Endocrine Medical History: Reports: Hx Hypothyroidism Renal/ Medical History: Denies: Hx Peritoneal Dialysis GI Medical History: Reports: Hx Gastroesophageal Reflux Disease Surgical Hx: Negative Review of Systems - Review of Systems Constitutional: denies: Chills, Fever EENT: No symptoms reported Cardiovascular: No symptoms reported Respiratory: No symptoms reported Gastrointestinal: denies: Abdomen distended, Abdominal pain, Diarrhea Genitourinary: No symptoms reported Female Genitourinary: No symptoms reported Musculoskeletal: No symptoms reported Skin: No symptoms reported Hematologic/Lymphatic: See HPI Physical Exam - Vital signs Vitals: Pulse Resp BP Pulse Ox 75 16 187/87 H 100 11/17/18 15:54 11/17/18 15:54 11/17/18 15:54 11/17/18 15:54 Notes: Physical exam: GENERAL: Weak appearing 78-year-old female, no acute distress HEAD: Atraumatic, normocephalic. EYES: Pupils equal round and reactive to light, extraocular movements intact, sclera anicteric, conjunctiva are normal. ENT: TMs normal, nares patent, oropharynx clear without exudates. Moist mucous membranes. NECK: Normal range of motion, supple without obvious mass or JVD. LUNGS: Breath sounds clear to auscultation bilaterally and equal. No wheezes rales or rhonchi. HEART: Regular rate and rhythm without murmurs, rubs or gallops. ABDOMEN: Soft, normoactive bowel sounds. No tenderness to palpation. No guarding, no rebound. No masses appreciated. EXTREMITIES: Normal range of motion, no pitting or edema. No clubbing or cyanosis. NEUROLOGICAL: Cranial nerves II through XII grossly intact. Normal speech, moving all extremities. PSYCH: She appears to have a blunted affect. SKIN: Warm, Dry, normal turgor, no rashes or lesions noted. Course - Vital Signs Vital signs: Temp Pulse Resp BP Pulse Ox 75 15 187/87 H 100 11/17/18 15:54 11/17/18 17:01 11/17/18 17:00 11/17/18 17:01 - Laboratory Result Diagrams: 11/17/18 16:16 11/17/18 16:16 Laboratory results interpreted by me: 11/17/18 11/17/18 11/17/18 16:16 16:16 16:42 Hgb 9.1 L Hct 29.7 L MCV 71 L MCH 21.9 L MCHC 30.8 L RDW 19.2 H Seg Neutrophils % 85.9 H Lymphocytes % 8.4 L Chloride 94 L Carbon Dioxide 39 H BUN 32 H Creatinine 2.37 H Est GFR ( Amer) 24 L Est GFR (Non-Af Amer) 20 L Glucose 113 H Calcium 12.7 H* Ur Leukocyte Esterase TRACE H - Diagnostic Test Radiology reviewed: Image reviewed, Reports reviewed - EKG Interpretation by Me Rate: Normal Rhythm: NSR - EKG shows normal sinus rhythm with a ventricular rate of 85, no acute ST-T wave changes, QTC 41 Discharge - Discharge Clinical Impression: Acute kidney injury, Hypercalcemia, Dehydration Condition: Stable Disposition: ADMITTED INPATIENT Admitting Provider: Hospitalist - Dr Rosales Unit Admitted: Telemetry
--- NOTE | 2018-11-17 18:18 | RADIOLOGY REPORT (SQ) ---
EXAM DESCRIPTION: CHEST SINGLE VIEW COMPLETED DATE/TIME: 11/17/2018 6:06 pm REASON FOR STUDY: alteerd mental status COMPARISON: 09/28/2018 EXAM PARAMETERS: NUMBER OF VIEWS: One view. TECHNIQUE: Single frontal radiographic view of the chest acquired. RADIATION DOSE: NA LIMITATIONS: None. FINDINGS: LUNGS AND PLEURA: No opacities, masses or pneumothorax. No pleural effusion. MEDIASTINUM AND HILAR STRUCTURES: No masses. Contour normal. HEART AND VASCULAR STRUCTURES: Heart normal in size. Normal vasculature. BONES: No acute findings. HARDWARE: None in the chest. OTHER: No other significant finding. IMPRESSION: NO ACUTE RADIOGRAPHIC FINDING IN THE CHEST. TECHNICAL DOCUMENTATION: JOB ID: [id number] [employer]- All Rights Reserved Reading location - IP/workstation name: [email or web address]
--- NOTE | 2018-11-17 18:35 | EKG REPORT ---
SEVERITY:- ABNORMAL ECG - SINUS RHYTHM LEFT VENTRICULAR HYPERTROPHY : Confirmed by: Samir Johnson MD 17-Nov-2018 18:33:27
--- NOTE | 2018-11-17 18:36 | PDOC H&P ---
History of Present Illness Patient complains of: lethargy, vomiting History of Present Illness: BRADLEY CORREA is a 78 year old female with a past medical history of hypothyroidism, hypertension, hyperlipidemia and vitamin D deficiency who was brought in because of nausea, vomiting and altered mental status. Patient's daughter is uneventful and she says that she visited her mom this morning and she was not at her baseline. Daughter says that patient has some mild memory impairment but is mostly coherent but this morning, patient was able to answer her radius and was not able to sustain a coherent conversation. She says that patient has been having increasing weakness and poor oral intake in the past 3 days along with nausea and vomiting. She says that patient complained of nausea and had nonbilious, nonbloody vomiting after she eats. No fever or chills. No diarrhea. In the ER, patient was noted to have acute renal failure and hypercalcemia. Patient's daughter says that patient has history of vitamin D deficiency and has been taking vitamin D and calcium supplements for a while. Patient is able to tell me her name but does not answer when asked where she is or what month or year it is. She promptly answers to yes or no questions and denies she is in pain. She denies shortness of breath, chest pain or abdominal pain. Past Medical History Cardiac Medical History: Reports: Hyperlipidema Endocrine Medical History: Reports: Hypothyroidism GI Medical History: Reports: Gastroesophageal Reflux Disease Social History Smoking Status: Unknown if Ever Smoked Family History Family History: Reviewed & Not Pertinent Parental Family History Reviewed: Yes - No premature CAD Children Family History Reviewed: No Sibling(s) Family History Reviewed.: No Medication/Allergy Allergies/Adverse Reactions: cyclobenzaprine [From Flexeril] Allergy (Verified 09/28/18 22:52) Penicillins Allergy (Verified 09/28/18 22:52) Review of Systems All systems: reviewed and no additional remarkable complaints except as stated - As mentioned in HPI Physical Exam Vital Signs: Temp Pulse Resp BP Pulse Ox 75 15 187/87 H 100 11/17/18 15:54 11/17/18 17:01 11/17/18 17:00 11/17/18 17:01 Intake & Output 11/16/18 11/17/18 11/18/18 06:59 06:59 06:59 Weight 250 lb 0.067 oz General appearance: PRESENT: no acute distress, well-developed, well-nourished Head exam: PRESENT: atraumatic, normocephalic Eye exam: PRESENT: conjunctiva pink, EOMI, PERRLA. ABSENT: scleral icterus Ear exam: PRESENT: normal external ear exam Mouth exam: PRESENT: moist, tongue midline Neck exam: ABSENT: carotid bruit, JVD, lymphadenopathy, thyromegaly Respiratory exam: PRESENT: clear to auscultation gordon. ABSENT: rales, rhonchi, wheezes Cardiovascular exam: PRESENT: RRR. ABSENT: diastolic murmur, rubs, systolic murmur Pulses: PRESENT: normal dorsalis pedis pul GI/Abdominal exam: PRESENT: normal bowel sounds, soft. ABSENT: distended, guarding, mass, organolmegaly, rebound, tenderness Rectal exam: PRESENT: deferred Musculoskeletal exam: PRESENT: other - Chronic nonpitting bipedal edema Neurological exam: PRESENT: alert, awake, oriented to person, other - Patient is able to show me her name but does not answer when asked where she is or what month or year it is. Results Laboratory Results: 11/17/18 16:16 11/17/18 16:16 11/17/18 11/17/18 11/17/18 16:16 16:16 16:42 WBC 9.5 RBC 4.17 Hgb 9.1 L Hct 29.7 L MCV 71 L MCH 21.9 L MCHC 30.8 L RDW 19.2 H Plt Count 338 Seg Neutrophils % 85.9 H Lymphocytes % 8.4 L Monocytes % 5.3 Eosinophils % 0.2 Basophils % 0.2 Absolute Neutrophils 8.1 Absolute Lymphocytes 0.8 Absolute Monocytes 0.5 Absolute Eosinophils 0.0 Absolute Basophils 0.0 Sodium 140.5 Potassium 3.8 Chloride 94 L Carbon Dioxide 39 H Anion Gap 8 BUN 32 H Creatinine 2.37 H Est GFR ( Amer) 24 L Est GFR (Non-Af Amer) 20 L Glucose 113 H Calcium 12.7 H* Magnesium 2.1 Total Bilirubin 0.8 AST 24 ALT 10 Alkaline Phosphatase 89 Total Protein 8.0 Albumin 4.6 Urine Color YELLOW Urine Appearance CLEAR Urine pH 6.0 Ur Specific Coleman 1.011 Urine Protein NEGATIVE Urine Glucose (UA) NEGATIVE Urine Ketones NEGATIVE Urine Blood NEGATIVE Urine Nitrite NEGATIVE Ur Leukocyte Esterase TRACE H Urine WBC (Auto) 1 Urine RBC (Auto) 1 Impressions: Chest X-Ray 11/17/18 17:57 IMPRESSION: NO ACUTE RADIOGRAPHIC FINDING IN THE CHEST. Assessment & Plan - Diagnosis (1) Acute kidney injury Is this a current diagnosis for this admission?: Yes Plan: Likely prerenal. Patient is a bit dehydrated and is not having poor oral intake abdominal having nausea and vomiting the past few days. We will give another bolus after the first bolus of normal saline the ER. Switch to normal saline at 125 cc thereafter. We will also check FeNa. (2) Hypercalcemia Is this a current diagnosis for this admission?: Yes Plan: Calcium is 12.3. Will check an ionized calcium. Hypercalcemia could be multifactorial from dehydration in the setting of taking chronic calcium supplements. Will check PTH and vitamin D level as well. Continue IV fluids. Will check calcium tomorrow. (3) Dehydration Is this a current diagnosis for this admission?: Yes Plan: IV fluids as mentioned. - Time Time Spent: 30 to 50 Minutes
[2018-11-17] MEDS ORDERED: ONDANSETRON HCL INJ/PF 4 MG/2 ML SDV IV PRN (19:05)
[2018-11-17 21:26] LABS: URINE CREATININE 121.9 mg/dL (15-278)
[2018-11-17] MEDS: HEPARIN SOD (PORCINE) 5,000 UNIT/ML 1 ML SYRINGE SUBCUT SCH (23:02)
[2018-11-18] MEDS: HYDRALAZINE HCL INJ/PF 20 MG/1 ML SDV IV PRN ×2 (00:31→20:18)
[2018-11-18 07:06] LABS: ANION GAP 8 (5-19); BLOOD UREA NITROGEN 30 mg/dL (7-20); CALCIUM 11.4 mg/dL (8.4-10.2); CARBON DIOXIDE 32 mmol/L (22-30); CHLORIDE 102 mmol/L (98-107); FERRITIN 8.03 ng/mL (11.1-264.0); GLUCOSE 92 mg/dL (75-110); POTASSIUM 3.2 mmol/L (3.6-5.0); SODIUM 141.7 mmol/L (137-145)
[2018-11-18 07:20] LABS: ABSOLUTE RETICS # 0.049 10^6/uL (0.028-0.122); RETICULOCYTE COUNT (AUTO) 1.39 % (0.66-2.85)
[2018-11-18 08:06] LABS: IRON(TIBC) < 10.1 ug/dL (37-170)
[2018-11-18] MEDS: HEPARIN SOD (PORCINE) 5,000 UNIT/ML 1 ML SYRINGE SUBCUT SCH ×2 (09:43→21:08)
[2018-11-18] MEDS: NORMAL SALINE 1000 ML 1,000 ML IV PRN (13:04)
--- NOTE | 2018-11-18 15:51 | RADIOLOGY REPORT (SQ) ---
EXAM DESCRIPTION: CT HEAD WITHOUT COMPLETED DATE/TIME: 11/18/2018 12:08 pm REASON FOR STUDY: AMS R41.82 ALTERED MENTAL STATUS, UNSPECIFIED COMPARISON: 09/28/2018 TECHNIQUE: Axial images acquired through the brain without intravenous contrast. Images reviewed wi th bone, brain and subdural windows. Additional sagittal and coronal reconstructions were generated. Images stored on PACS. All CT scanners at this facility use dose modulation, iterative reconstruction, and/or weight based d osing when appropriate to reduce radiation dose to as low as reasonably achievable (ALARA). [facility]: Dose Right [facility]: CareDose [facility]: Dose Right [facility]: Teradose 4D [facility]: Sellplex RADIATION DOSE: mGy. LIMITATIONS: None. FINDINGS: VENTRICLES: Prominent. CEREBRUM: No masses. No hemorrhage. No midline shift. Stable mild areas of low density in the whit e matter most likely due to chronic micro-vascular ischemic change. No evidence for acute infarction . CEREBELLUM: No masses. No hemorrhage. No alteration of density. No evidence for acute infarction. EXTRAAXIAL SPACES: Age-related involutional change. No fluid collections. No masses. ORBITS AND GLOBE: No intra- or extraconal masses. Normal contour of globe without masses. CALVARIUM: No fracture. PARANASAL SINUSES: No fluid or mucosal thickening. SOFT TISSUES: No mass or hematoma. OTHER: No other significant finding. IMPRESSION: Stable chronic changes without evidence of acute intracranial abnormality. EVIDENCE OF ACUTE STROKE: NO. TECHNICAL DOCUMENTATION: JOB ID: [id number] Quality ID # [id number]: Final reports with documentation of one or more dose reduction techniques (e.g., Au tomated exposure control, adjustment of the mA and/or kV according to patient size, use of iterative reconstruction technique) 2010 [employer]- All Rights Reserved Reading location - IP/workstation name: [email or web address]
--- NOTE | 2018-11-18 19:53 | PDOC PROGRESS REPORT ---
Subjective Progress Note for:: 11/18/18 Subjective:: This is a 78 year old female with a past medical history of hypothyroidism, hypertension, hyperlipidemia and vitamin D deficiency who was brought in because of nausea, vomiting and altered mental status who was admitted due to hypercalcemia and acute renal failure. Patient was started on IV fluids. She did clinically improve with fluid resuscitation. Upon encounter this morning, patient was more awake and was more responsive. She is now able to tell me her name and she knows she is in the hospital. She denies any acute complaints. Denies any chest pain, shortness of breath. No abdominal pain. No nausea or vomiting. Reason For Visit: WALESKA,HYPERCALCEMIA,DEHYDRATION Physical Exam Vital Signs: Temp Pulse Resp BP Pulse Ox 98.3 F 89 22 H 168/91 H 100 11/18/18 16:00 11/18/18 16:00 11/18/18 16:00 11/18/18 16:00 11/18/18 16:00 Intake & Output 11/17/18 11/18/18 11/19/18 06:59 06:59 06:59 Intake Total 1000 200 Output Total 400 330 Balance 600 -130 Weight 249 lb 5.485 oz General appearance: PRESENT: no acute distress, well-developed, well-nourished Head exam: PRESENT: atraumatic, normocephalic Eye exam: PRESENT: conjunctiva pink, EOMI, PERRLA. ABSENT: scleral icterus Ear exam: PRESENT: normal external ear exam Neck exam: ABSENT: carotid bruit, JVD, lymphadenopathy, thyromegaly Respiratory exam: PRESENT: clear to auscultation gordon. ABSENT: rales, rhonchi, wheezes Cardiovascular exam: PRESENT: RRR. ABSENT: diastolic murmur, rubs, systolic murmur Pulses: PRESENT: normal dorsalis pedis pul GI/Abdominal exam: PRESENT: normal bowel sounds, soft. ABSENT: distended, guarding, mass, organolmegaly, rebound, tenderness Rectal exam: PRESENT: deferred Neurological exam: PRESENT: alert, awake, oriented to person, oriented to place Results Laboratory Results: 11/17/18 16:16 11/18/18 04:21 11/17/18 11/18/18 11/18/18 18:50 04:21 04:21 Retic Count (auto) 1.39 Absolute Retic 0.049 Sodium 141.7 Potassium 3.2 L Chloride 102 Carbon Dioxide 32 H Anion Gap 8 BUN 30 H Creatinine 2.01 H Est GFR ( Amer) 29 L Est GFR (Non-Af Amer) 24 L Glucose 92 Calcium 11.4 H Iron < 10.1 L TIBC 378 % Saturation UNABLE TO CALCULATE Ferritin 8.03 L Vitamin B12 397.0 Folate 3.20 PTH Intact < 3.4 L Impressions: Chest X-Ray 11/17/18 17:57 IMPRESSION: NO ACUTE RADIOGRAPHIC FINDING IN THE CHEST. Head CT 11/18/18 11:53 IMPRESSION: Stable chronic changes without evidence of acute intracranial abnormality. EVIDENCE OF ACUTE STROKE: NO. Assessment & Plan - Diagnosis (1) Acute kidney injury Is this a current diagnosis for this admission?: Yes Plan: Likely prerenal. Improving. Creatinine has improved to 2.0. Continue IV fluids. We will continue to recheck BMP. (2) Hypercalcemia Is this a current diagnosis for this admission?: Yes Plan: Improved. Continue IV fluids. hypercalcemia could be multifactorial from dehydration in the setting of taking chronic calcium supplements. PTH level is low. With patient's chronic anemia and renal failure, will also send for SPEP and UPEP. (3) Dehydration Is this a current diagnosis for this admission?: Yes Plan: Improved. IV fluids as mentioned. - Time Time Spent with patient: 15-24 minutes
[2018-11-19] MEDS: HYDRALAZINE HCL INJ/PF 20 MG/1 ML SDV IV PRN ×2 (03:59→21:35)
[2018-11-19] MEDS: HEPARIN SOD (PORCINE) 5,000 UNIT/ML 1 ML SYRINGE SUBCUT SCH ×2 (09:41→21:35)
[2018-11-19] MEDS ORDERED: POTASSIUM CHLORIDE 10 MEQ CAPSULE.ER PO ONE ×2 (11:00→13:39)
[2018-11-19] MEDS: NORMAL SALINE 1000 ML 1,000 ML IV PRN ×2 (11:25→21:38)
[2018-11-19] MEDS: FERROUS SULFATE 325 MG TABLET PO SCH (11:56)
[2018-11-19 13:30] LABS: ANION GAP 8 (5-19); BLOOD UREA NITROGEN 22 mg/dL (7-20); CALCIUM 9.7 mg/dL (8.4-10.2); CARBON DIOXIDE 25 mmol/L (22-30); CHLORIDE 106 mmol/L (98-107); GLUCOSE 86 mg/dL (75-110); POTASSIUM 3.3 mmol/L (3.6-5.0); SODIUM 139.3 mmol/L (137-145)
[2018-11-19 17:39] LABS: ANION GAP 7 (5-19); BLOOD UREA NITROGEN 21 mg/dL (7-20); CALCIUM 9.5 mg/dL (8.4-10.2); CARBON DIOXIDE 26 mmol/L (22-30); CHLORIDE 108 mmol/L (98-107); GLUCOSE 109 mg/dL (75-110); POTASSIUM 3.6 mmol/L (3.6-5.0); SODIUM 140.6 mmol/L (137-145)
--- NOTE | 2018-11-19 19:11 | PDOC PROGRESS REPORT ---
Subjective Progress Note for:: 11/19/18 Subjective:: This is a 78 year old female with a past medical history of hypothyroidism, hypertension, hyperlipidemia and vitamin D deficiency who was brought in because of nausea, vomiting and altered mental status who was admitted due to hypercalcemia and acute renal failure. Patient was started on IV fluids. She did clinically improve with fluid resuscitation. Up patient continues to improve clinically. Upon encounter this morning, she is no oriented to person, place and time. She denies any acute complaints. Denies any chest pain, shortness of breath. No abdominal pain. No nausea or vomiting. Potassium came back low this morning. Creatinine has significantly improved. Reason For Visit: WALESKA,HYPERCALCEMIA,DEHYDRATION Physical Exam Vital Signs: Temp Pulse Resp BP Pulse Ox 98.6 F 89 16 175/59 H 100 11/19/18 15:50 11/19/18 15:50 11/19/18 15:50 11/19/18 15:50 11/19/18 15:50 Intake & Output 11/18/18 11/19/18 11/20/18 06:59 06:59 06:59 Intake Total 1000 1540 400 Output Total 400 930 920 Balance 600 610 -520 Weight 249 lb 5.485 oz 253 lb 1.451 oz General appearance: PRESENT: no acute distress, well-developed, well-nourished Head exam: PRESENT: atraumatic, normocephalic Eye exam: PRESENT: conjunctiva pink, EOMI, PERRLA. ABSENT: scleral icterus Ear exam: PRESENT: normal external ear exam Mouth exam: PRESENT: moist, tongue midline Neck exam: ABSENT: carotid bruit, JVD, lymphadenopathy, thyromegaly Respiratory exam: PRESENT: clear to auscultation gordon. ABSENT: rales, rhonchi, wheezes Cardiovascular exam: PRESENT: RRR. ABSENT: diastolic murmur, rubs, systolic murmur Pulses: PRESENT: normal dorsalis pedis pul GI/Abdominal exam: PRESENT: normal bowel sounds, soft. ABSENT: distended, guarding, mass, organolmegaly, rebound, tenderness Rectal exam: PRESENT: deferred Neurological exam: PRESENT: alert, awake, oriented to person, oriented to place, oriented to time, CN II-XII grossly intact. ABSENT: motor sensory deficit Results Laboratory Results: 11/17/18 16:16 11/19/18 17:07 11/19/18 11/19/18 12:51 17:07 Sodium 139.3 140.6 Potassium 3.3 L 3.6 Chloride 106 108 H Carbon Dioxide 25 26 Anion Gap 8 7 BUN 22 H 21 H Creatinine 1.54 H 1.65 H Est GFR ( Amer) 39 L 36 L Est GFR (Non-Af Amer) 32 L 30 L Glucose 86 109 Calcium 9.7 9.5 Impressions: Chest X-Ray 11/17/18 17:57 IMPRESSION: NO ACUTE RADIOGRAPHIC FINDING IN THE CHEST. Head CT 11/18/18 11:53 IMPRESSION: Stable chronic changes without evidence of acute intracranial abnormality. EVIDENCE OF ACUTE STROKE: NO. Assessment & Plan - Diagnosis (1) Acute kidney injury Is this a current diagnosis for this admission?: Yes Plan: Likely prerenal. Resolving. Creatinine has improved to 1.5. Decrease IV fluids to 75 cc/hr. (2) Hypercalcemia Is this a current diagnosis for this admission?: Yes Plan: Resolved. Continue IV fluids. Hypercalcemia could be multifactorial from dehydration in the setting of taking chronic calcium supplements. PTH level is low. (3) Dehydration Is this a current diagnosis for this admission?: Yes Plan: Improved. IV fluids as mentioned. (4) Hypokalemia Is this a current diagnosis for this admission?: Yes Plan: Replace with p.o. potassium. Repeat BMP. - Time Time Spent with patient: 15-24 minutes
[2018-11-20] MEDS: HYDRALAZINE HCL INJ/PF 20 MG/1 ML SDV IV PRN (05:08)
[2018-11-20 05:23] LABS: ANION GAP 6 (5-19); BLOOD UREA NITROGEN 18 mg/dL (7-20); CALCIUM 9.1 mg/dL (8.4-10.2); CARBON DIOXIDE 24 mmol/L (22-30); CHLORIDE 113 mmol/L (98-107); GLUCOSE 91 mg/dL (75-110); POTASSIUM 3.6 mmol/L (3.6-5.0); SODIUM 142.6 mmol/L (137-145)
[2018-11-20] MEDS: FERROUS SULFATE 325 MG TABLET PO SCH (09:10)
[2018-11-20] MEDS: HEPARIN SOD (PORCINE) 5,000 UNIT/ML 1 ML SYRINGE SUBCUT SCH ×2 (09:10→22:05)
[2018-11-20] MEDS: NORMAL SALINE 1000 ML 1,000 ML IV PRN (09:11)
[2018-11-20] MEDS ORDERED: HYDROCHLOROTHIAZIDE PO SCH (10:00)
[2018-11-20] MEDS ORDERED: BISOPROLOL PO SCH (10:00)
[2018-11-20] MEDS ORDERED: [UNRECOGNIZED DRUG - OTHER] PO SCH (10:00)
[2018-11-20] MEDS ORDERED: LOSARTAN POTASSIUM 50 MG TABLET PO SCH (11:30)
[2018-11-20] MEDS ORDERED: ATENOLOL 50 MG TABLET PO SCH (11:30)
[2018-11-20] MEDS ORDERED: HYDROCHLOROTHIAZIDE 12.5 MG TABLET PO SCH (11:30)
--- NOTE | 2018-11-20 16:05 | PDOC PROGRESS REPORT ---
Subjective Progress Note for:: 11/20/18 Subjective:: This is a 78 year old female with a past medical history of hypothyroidism, CKD, hypertension, hyperlipidemia and vitamin D deficiency who was brought in because of nausea, vomiting and altered mental status who was admitted due to hypercalcemia and acute renal failure. Patient was started on IV fluids. She did clinically improve with fluid resuscitation. Her mentation also significantly improved with IV fluids. 11/20/18: Upon encounter this morning, she is fully awake and coherent. She remains well oriented to person, place and time. She denies any acute complaints. Denies any chest pain, shortness of breath. No abdominal pain. No nausea or vomiting. Creatinine appears to have a improved back to baseline. Patient was evaluated by physical therapy , she required significant assistance. PT recommendation is for patient to go for inpatient rehab. Reason For Visit: WALESKA,HYPERCALCEMIA,DEHYDRATION Physical Exam Vital Signs: Temp Pulse Resp BP Pulse Ox 98.2 F 67 16 145/60 H 98 11/20/18 11:38 11/20/18 14:00 11/20/18 11:38 11/20/18 11:38 11/20/18 11:38 Intake & Output 11/19/18 11/20/18 11/21/18 06:59 06:59 06:59 Intake Total 1540 1725 866 Output Total 930 1770 Balance 610 -45 866 Weight 253 lb 1.451 oz 259 lb 14.8 oz General appearance: PRESENT: no acute distress, well-developed, well-nourished Head exam: PRESENT: atraumatic, normocephalic Eye exam: PRESENT: conjunctiva pink, EOMI, PERRLA. ABSENT: scleral icterus Ear exam: PRESENT: normal external ear exam Neck exam: ABSENT: carotid bruit, JVD, lymphadenopathy, thyromegaly Respiratory exam: PRESENT: clear to auscultation gordon. ABSENT: rales, rhonchi, wheezes Cardiovascular exam: PRESENT: RRR. ABSENT: diastolic murmur, rubs, systolic murmur Pulses: PRESENT: normal dorsalis pedis pul GI/Abdominal exam: PRESENT: normal bowel sounds, soft. ABSENT: distended, guarding, mass, organolmegaly, rebound, tenderness Rectal exam: PRESENT: deferred Neurological exam: PRESENT: alert, awake, oriented to person, oriented to place, oriented to time, CN II-XII grossly intact. ABSENT: motor sensory deficit Results Laboratory Results: 11/17/18 16:16 11/20/18 04:40 11/19/18 11/20/18 17:07 04:40 Sodium 140.6 142.6 Potassium 3.6 3.6 Chloride 108 H 113 H Carbon Dioxide 26 24 Anion Gap 7 6 BUN 21 H 18 Creatinine 1.65 H 1.59 H Est GFR ( Amer) 36 L 38 L Est GFR (Non-Af Amer) 30 L 31 L Glucose 109 91 Calcium 9.5 9.1 Impressions: Chest X-Ray 11/17/18 17:57 IMPRESSION: NO ACUTE RADIOGRAPHIC FINDING IN THE CHEST. Head CT 11/18/18 11:53 IMPRESSION: Stable chronic changes without evidence of acute intracranial abnormality. EVIDENCE OF ACUTE STROKE: NO. Assessment & Plan - Diagnosis (1) Acute kidney injury Is this a current diagnosis for this admission?: Yes Plan: Likely prerenal. Resolved. Creatinine has improved to 1.5. She has a baseline of 1.4. IV fluids decreased to 50 cc/hr. (2) Hypercalcemia Is this a current diagnosis for this admission?: Yes Plan: Resolved. Hypercalcemia could be multifactorial from dehydration in the setting of taking chronic calcium supplements. PTH level is low. (3) Dehydration Is this a current diagnosis for this admission?: Yes Plan: Resolved. (4) Hypokalemia Is this a current diagnosis for this admission?: Yes Plan: Resolved. - Time Time Spent with patient: 15-24 minutes
--- NOTE | 2018-11-20 18:40 | PDOC TRANSFER SUMMARY ---
General Admission Date/PCP: 11/18/18 14:47 - Transfer Diagnosis (1) Acute kidney injury Is this a current diagnosis for this admission?: Yes (2) Hypercalcemia Is this a current diagnosis for this admission?: Yes (3) Dehydration Is this a current diagnosis for this admission?: Yes (4) Hypokalemia Is this a current diagnosis for this admission?: Yes - Transfer Medications Home Medications: Atorvastatin Calcium [Lipitor 20 mg Tablet] 20 mg PO QHS 11/17/18 Bisoprolol/Hydrochlorothiazide [Bisoprolol-Hctz 5-6.25 mg Tab] 1 each PO DAILY 11/17/18 Levothyroxine Sodium [Synthroid 0.1 mg Tablet] 0.1 mg PO Q6AM 11/17/18 Losartan Potassium [Cozaar 100 mg Tablet] 100 mg PO DAILY 11/17/18 Omeprazole 20 mg PO DAILY 11/17/18 Ranitidine HCl [Zantac 150 mg Tablet] 150 mg PO QHS 11/17/18 Transfer Medications: Current Medications Atenolol (Tenormin 50 Mg Tablet) 50 mg PO DAILY [facility] Stop: 12/20/18 11:29 Last Admin: 11/20/18 11:36 Dose: 50 mg Documented by: Ferrous Sulfate (Feosol 325 Mg Tablet) 325 mg PO DAILY [facility] Stop: 12/19/18 10:59 Last Admin: 11/20/18 09:10 Dose: 325 mg Documented by: Heparin Sodium (Porcine) (Heparin Inj 5,000 Units/Ml 1 Ml Syringe) 5,000 unit SUBCUT Q12 [facility] Stop: 12/17/18 21:59 Last Admin: 11/20/18 09:10 Dose: 5,000 unit Documented by: Hydralazine HCl (Apresoline Inj/Pf 20 Mg/1 Ml Sdv) 10 mg IV Q4H PRN PRN Reason: Give For Sbp > 170/ Dbp > 90 Stop: 12/17/18 18:44 Last Admin: 11/20/18 05:08 Dose: 10 mg Documented by: Hydrochlorothiazide (Hydrodiuril 12.5 Mg Tablet) 6.25 mg PO DAILY [facility] Stop: 12/20/18 11:29 Last Admin: 11/20/18 11:36 Dose: 6.25 mg Documented by: Sodium Chloride (Nacl 0.9% 1000 Ml Iv Soln) 1,000 mls @ 75 mls/hr IV CONTINUOUS PRN PRN Reason: THIS MED IS NOT "PRN" Stop: 12/17/18 18:29 Last Admin: 11/20/18 09:11 Dose: 75 mls/hr Documented by: Losartan Potassium (Cozaar 50 Mg Tablet) 100 mg PO DAILY [facility] Stop: 12/20/18 11:29 Last Admin: 11/20/18 11:36 Dose: 100 mg Documented by: Ondansetron HCl (Zofran Inj/Pf 4 Mg/2 Ml Sdv) 4 mg IV Q6HP PRN PRN Reason: FOR NAUSEA/VOMITING Stop: 12/17/18 19:04 - Allergies Allergies/Adverse Reactions: cyclobenzaprine [From Flexeril] Allergy (Verified 09/28/18 22:52) Penicillins Allergy (Verified 09/28/18 22:52) Hospital Course Hospital Course: H&P: BRADLEY CORREA is a 78 year old female with a past medical history of hypothyroidism, hypertension, hyperlipidemia and vitamin D deficiency who was brought in because of nausea, vomiting and altered mental status. Patient's daughter is uneventful and she says that she visited her mom this morning and she was not at her baseline. Daughter says that patient has some mild memory impairment but is mostly coherent but this morning, patient was able to answer her yes/no questions but was not able to sustain a coherent conversation. She says that patient has been having increasing weakness and poor oral intake in the past 3 days along with nausea and vomiting. She says that patient complained of nausea and had nonbilious, nonbloody vomiting after she eats. No fever or chills. No diarrhea. In the ER, patient was noted to have acute renal failure and hypercalcemia. Patient's daughter says that patient has history of vitamin D deficiency and has been taking vitamin D, calcitriol and calcium supplements for a while for a low calcium and low vitamin D. Patient is able to tell me her name but does not answer when asked where she is or what month or year it is. She promptly answers to yes or no questions and denies she is in pain. She denies shortness of breath, chest pain or abdominal pain. Course: Patient was started on IV fluids. She did clinically improve with fluid resuscitation. Her mentation, renal function and hypercalcemia also significantly improved with IV fluids. 11/20/18: Upon encounter this morning, she is fully awake and coherent. She remains well oriented to person, place and time. She denies any acute complaints. Denies any chest pain, shortness of breath. No abdominal pain. Creatinine appears to have a improved back to baseline. Her hypercalcmeia also resolved. Hypercalcemia could be multifactorial from dehydration in the setting of taking chronic calcium supplements and calcitriol. PTH level is low. Vitamin D levels were normal. Her calcium supplements and calcitriol were discontinued. A UPEP and SPEP were sent initially because she had renal failure and anemia. PCP to ff-up on SPEP and UPEP. Iron studies were consistent with iron deficiency anemia. She was started on FeSO4 as well. Patient was evaluated by physical therapy , she required significant assistance. PT recommendation is for patient to go for inpatient rehab. 11/21/18 7:01 AM Addendum: Called by RN. Overnight, patient had urinary retention of 600 cc and required straight cathed. Continue intermitted straight cath q6 at rehab and patient will be given outpatient urology follow appointment. Flomax also added. Patient was not re evaluated today as she was already taken by EMS for transfer to rehab. Physical Exam Vital Signs: Temp Pulse Resp BP Pulse Ox 98.2 F 69 16 150/67 H 98 11/20/18 15:18 11/20/18 15:18 11/20/18 15:18 11/20/18 15:18 11/20/18 15:18 Intake & Output 11/19/18 11/20/18 11/21/18 06:59 06:59 06:59 Intake Total 1540 1725 1220 Output Total 930 1770 800 Balance 610 -45 420 Weight 253 lb 1.451 oz 259 lb 14.8 oz General appearance: PRESENT: no acute distress, well-developed, well-nourished Head exam: PRESENT: atraumatic, normocephalic Eye exam: PRESENT: conjunctiva pink, EOMI, PERRLA. ABSENT: scleral icterus Ear exam: PRESENT: normal external ear exam Mouth exam: PRESENT: moist, tongue midline Neck exam: ABSENT: carotid bruit, JVD, lymphadenopathy, thyromegaly Respiratory exam: PRESENT: clear to auscultation gordon. ABSENT: rales, rhonchi, wheezes Cardiovascular exam: PRESENT: RRR. ABSENT: diastolic murmur, rubs, systolic murmur Pulses: PRESENT: normal dorsalis pedis pul GI/Abdominal exam: PRESENT: normal bowel sounds, soft. ABSENT: distended, guarding, mass, organolmegaly, rebound, tenderness Rectal exam: PRESENT: deferred Neurological exam: PRESENT: alert, awake, oriented to person, oriented to place, oriented to time, oriented to situation, CN II-XII grossly intact. ABSENT: motor sensory deficit Results Laboratory Results: 11/17/18 16:16 11/20/18 04:40 11/20/18 04:40 Sodium 142.6 Potassium 3.6 Chloride 113 H Carbon Dioxide 24 Anion Gap 6 BUN 18 Creatinine 1.59 H Est GFR ( Amer) 38 L Est GFR (Non-Af Amer) 31 L Glucose 91 Calcium 9.1 Impressions: Chest X-Ray 11/17/18 17:57 IMPRESSION: NO ACUTE RADIOGRAPHIC FINDING IN THE CHEST. Head CT 11/18/18 11:53 IMPRESSION: Stable chronic changes without evidence of acute intracranial abnormality. EVIDENCE OF ACUTE STROKE: NO.
[2018-11-20] MEDS ORDERED: ACETAMINOPHEN 325 MG TABLET PO PRN (19:03)
[2018-11-21 09:05] VITALS: BP 157/69
[2018-11-25 15:37] LABS: ALPHA-2-GLOBULIN 2 0.7 g/dL (0.4-1.0); BETA GLOBULINS 1.1 g/dL (0.7-1.3); GAMMA GLOBULIN 0.9 g/dL (0.4-1.8); MONOCLONAL SPIKE Not Observed g/dL (Not Observ)
== END 2018-11-21 08:45 | DRG 684 ==
LOC: ER 15:54 → INTOOBSV 18:35 → EH 18:35 → 4W 20:45 → OBSVTOIN 11-18 14:47 → 4N 11-20 16:41
PROVIDERS: ADMIT Internal Medicine; ATTEND Internal Medicine
DX: N17.9 Acute kidney failure, unspecified (principal); E83.52 Hypercalcemia; E86.0 Dehydration; E87.6 Hypokalemia; E03.9 Hypothyroidism, unspecified; I10 Essential (primary) hypertension; E55.9 Vitamin D deficiency, unspecified; K21.9 Gastro-esophageal reflux disease without esophagitis; E78.00 Pure hypercholesterolemia, unspecified; Z79.899 Other long term (current) drug therapy; Z88.8 Allergy status to other drugs, medicaments and biological substances; Z88.0 Allergy status to penicillin
CPT/HCPCS: 36415; 70450; 71045; 80048; 80053; 80307; 81001; 82306; 82330; 82397; 82570; 82607; 82652; 82728; 82746; 83540; 83550; 83735; 83970; 84165; 84166; 84300; 85025; 85045; 93005; 93010; 99285; G0378; G8978-GP; G8979-GP; J0360; J1644; J7030

== ENCOUNTER 2018-12-04 12:04 | Emergency (ER) | payer MEDICARE ==
[2018-12-04 14:03] LABS: HEMATOCRIT 23.6 % (36.0-47.0); MEAN CORPUSCULAR HEMOGLOBIN 24.3 pg (27.0-33.4); MEAN CORPUSCULAR HGB CONC 32.3 g/dL (32.0-36.0); PLATELET COUNT 313 10^3/uL (150-450); RED BLOOD COUNT 3.14 10^6/uL (3.72-5.28); RED CELL DISTRIBUTION WIDTH 24.3 % (11.5-14.0); WHITE BLOOD COUNT 4.8 10^3/uL (4.0-10.5)
[2018-12-04 14:09] LABS: HEMOGLOBIN 7.6 g/dL (12.0-15.5)
[2018-12-04 14:11] LABS: MEAN CORPUSCULAR VOLUME 75 fl (80-97)
[2018-12-04 14:31] LABS: ABSOLUTE LYMPHOCYTES# (MANUAL) 0.5 10^3/uL (0.5-4.7); ABSOLUTE MONOCYTES # (MANUAL) 0.3 10^3/uL (0.1-1.4); ABSOLUTE NEUTROPHILS# (MANUAL) 3.6 10^3/uL (1.7-8.2); BAND NEUTROPHILS % (MANUAL) 1 % (3-5); BASOPHILS % (MANUAL) 0 % (0-2); EOSINOPHILS % (MANUAL) 9 % (0-6); LYMPHOCYTES % (MANUAL) 11 % (13-45); MONOCYTES % (MANUAL) 6 % (3-13); SEGMENTED NEUTROPHILS % (MAN) 73 % (42-78); TOTAL CELLS COUNTED 100
[2018-12-04 14:33] LABS: ALANINE AMINOTRANSFERASE 14 U/L (9-52); ALBUMIN 3.1 g/dL (3.5-5.0); ALKALINE PHOSPHATASE 72 U/L (38-126); ANION GAP 6 (5-19); ASPARTATE AMINO TRANSFERASE 17 U/L (14-36); BILIRUBIN,DIRECT 0.2 mg/dL (0.0-0.4); BILIRUBIN,TOTAL 0.4 mg/dL (0.2-1.3); BLOOD UREA NITROGEN 14 mg/dL (7-20); CALCIUM 7.2 mg/dL (8.4-10.2); CARBON DIOXIDE 32 mmol/L (22-30); CHLORIDE 100 mmol/L (98-107); GLUCOSE 93 mg/dL (75-110); POTASSIUM 4.7 mmol/L (3.6-5.0); TOTAL PROTEIN 5.9 g/dL (6.3-8.2)
[2018-12-04 14:34] LABS: ANISOCYTOSIS 3+; HYPOCHROMASIA 2+; PLATELET COMMENT ADEQUATE; POLYCHROMASIA SLIGHT
[2018-12-04] MEDS ORDERED: NORMAL SALINE 250 ML IV PRN ×2 (14:38)
--- NOTE | 2018-12-04 14:42 | ER Document Report ---
ED General - General Chief Complaint: Abnormal Lab Results Stated Complaint: ABNORMAL LABS Time Seen by Provider: 12/04/18 14:09 Mode of Arrival: Medic Information source: Patient, Relative, [facility] Records, Outside Facility Records Notes: 78-year-old female with hypertension, hyperlipidemia, hypothyroidism, iron deficiency anemia, reflux presents via EMS from [facility] after blood work yesterday showed a hemoglobin of 6.9. Unfortunately the patient found out that this morning her from cancer. She states that she has been crying all day and has a headache and feels a little dizzy. She denies chest pain, shortness of breath, nausea, vomiting. Patient was transferred from [facility] to [facility] for rehab after she was found to have dehydration, acute kidney injury. TRAVEL OUTSIDE OF THE [place] IN LAST 30 DAYS: No - HPI Onset: Other Quality of pain: No pain Severity: None Associated symptoms: Other - Dizziness. denies: Chest pain, Nausea, Vomiting, Shortness of breath, Weakness Exacerbated by: Denies Relieved by: Denies Similar symptoms previously: Yes Recently seen / treated by doctor: Yes - Related Data Allergies/Adverse Reactions: cyclobenzaprine [From Flexeril] Allergy (Verified 09/28/18 22:52) Penicillins Allergy (Verified 09/28/18 22:52) Past Medical History - General Information source: Patient, Relative, [facility] Records, Outside Facility Records - Social History Smoking Status: Never Smoker Frequency of alcohol use: None Drug Abuse: None Lives with: [facility] Family History: Reviewed & Not Pertinent Patient has suicidal ideation: No Patient has homicidal ideation: No - Past Medical History Cardiac Medical History: Reports: Hx Hypercholesterolemia, Hx Hypertension Endocrine Medical History: Reports: Hx Hypothyroidism Renal/ Medical History: Denies: Hx Peritoneal Dialysis GI Medical History: Reports: Hx Gastroesophageal Reflux Disease Review of Systems - Review of Systems Notes: REVIEW OF SYSTEMS: CONSTITUTIONAL : Denies fever, chills, or sweats. Denies recent illness. Denies weight loss, recent hospitalizations. EENT: Denies visual changes, eye pain. Denies sore throat, oral lesions, difficulty swallowing. CARDIOVASCULAR: Denies chest pain. Denies palpitations. Denies lower extremity edema. RESPIRATORY: Denies cough. Denies shortness of breath, wheezing. GASTROINTESTINAL: Denies abdominal pain or distention. Denies nausea, vomiting, or diarrhea. Denies blood in vomitus, stools, or per rectum. Denies black, tarry stools. Denies constipation. GENITOURINARY: Denies difficulty urinating, painful urination, frequency, blood in urine, or vaginal discharge. MUSCULOSKELETAL: Denies back or neck pain or stiffness. Denies joint pain or swelling. SKIN: Denies rash, lesions or sores. HEMATOLOGIC : Denies easy bruising or bleeding. LYMPHATIC: Denies swollen glands. NEUROLOGICAL: Denies confusion or altered mental status. Denies loss of consciousness. Denies weakness or paralysis. Denies problems difficulty with ambulation, slurred speech. Denies sensory loss, numbness, or tingling. Denies seizures. PSYCHIATRIC: Denies anxiety or stress. Denies depression, suicidal ideation, or homicidal ideation. Denies visual or auditory hallucinations. Physical Exam - Vital signs Vitals: Temp 98.6 F 12/04/18 12:15 - Notes Notes: PHYSICAL EXAMINATION: GENERAL: Tearful, no acute distress HEAD: Atraumatic, normocephalic. EYES: Pupils equal round and reactive to light, extraocular movements intact, pale conjunctiva ENT: Nares patent, oropharynx clear without exudates. Moist mucous membranes. NECK: Normal range of motion, supple without lymphadenopathy LUNGS: Breath sounds clear to auscultation bilaterally and equal. No wheezes rales or rhonchi. HEART: Regular rate and rhythm 2/4 systolic murmur ABDOMEN: Soft, nontender, nondistended abdomen. No guarding, no rebound. No masses appreciated. Female : deferred Musculoskeletal: Normal range of motion, no pitting or edema. No cyanosis. NEUROLOGICAL: Cranial nerves grossly intact. Normal speech, normal gait. Normal sensory, motor exams PSYCH: Tearful, no acute distress SKIN: Warm, Dry, normal turgor, no rashes or lesions noted. Course - Re-evaluation Re-evalutation: Laboratory 12/04/18 12/04/18 12/04/18 12:14 12:14 12:14 WBC Cancelled RBC Cancelled Hgb Cancelled Hct Cancelled MCV Cancelled MCH Cancelled MCHC Cancelled RDW Cancelled Plt Count Cancelled Total Counted Seg Neutrophils % Cancelled Seg Neuts % (Manual) Band Neutrophils % Lymphocytes % Cancelled Lymphocytes % (Manual) Monocytes % Cancelled Monocytes % (Manual) Eosinophils % Cancelled Eosinophils % (Manual) Basophils % Cancelled Basophils % (Manual) Absolute Neutrophils Cancelled Abs Neuts (Manual) Absolute Lymphocytes Cancelled Abs Lymphs (Manual) Absolute Monocytes Cancelled Abs Monocytes (Manual) Absolute Eosinophils Cancelled Absolute Eos (Manual) Absolute Basophils Cancelled Abs Basophils (Manual) Platelet Estimate Cancelled Platelet Comment Polychromasia Hypochromasia Anisocytosis Microcytosis Sodium Cancelled Potassium Cancelled Chloride Cancelled Carbon Dioxide Cancelled Anion Gap Cancelled BUN Cancelled Creatinine Cancelled Est GFR ( Amer) Cancelled Est GFR (Non-Af Amer) Cancelled Glucose Cancelled Calcium Cancelled Total Bilirubin Cancelled Direct Bilirubin Cancelled Neonat Total Bilirubin Cancelled Neonat Direct Bilirubin Cancelled Neonat Indirect Bili Cancelled AST Cancelled ALT Cancelled Alkaline Phosphatase Cancelled Total Protein Cancelled Albumin Cancelled Urine Color Urine Appearance Urine pH Ur Specific [place] Urine Protein Urine Glucose (UA) Urine Ketones Urine Blood Urine Nitrite Urine Bilirubin Urine Urobilinogen Ur Leukocyte Esterase Urine WBC (Auto) Urine RBC (Auto) Urine Bacteria (Auto) Urine WBC Clumps Urine Ascorbic Acid Stool Occult Blood Slides for Path Review Cancelled Blood Type Cancelled Blood Type Confirm Antibody Screen Cancelled Crossmatch 12/04/18 12/04/18 12/04/18 13:50 13:50 13:50 WBC 4.8 RBC 3.14 L Hgb 7.6 L Hct 23.6 L MCV 75 L D MCH 24.3 L MCHC 32.3 RDW 24.3 H Plt Count 313 Total Counted 100 Seg Neutrophils % Not Reportable Seg Neuts % (Manual) 73 Band Neutrophils % 1 L Lymphocytes % Not Reportable Lymphocytes % (Manual) 11 L Monocytes % Not Reportable Monocytes % (Manual) 6 Eosinophils % Not Reportable Eosinophils % (Manual) 9 H Basophils % Not Reportable Basophils % (Manual) 0 Absolute Neutrophils Not Reportable Abs Neuts (Manual) 3.6 Absolute Lymphocytes Not Reportable Abs Lymphs (Manual) 0.5 Absolute Monocytes Not Reportable Abs Monocytes (Manual) 0.3 Absolute Eosinophils Not Reportable Absolute Eos (Manual) 0.4 Absolute Basophils Not Reportable Abs Basophils (Manual) 0.0 Platelet Estimate Platelet Comment ADEQUATE Polychromasia SLIGHT Hypochromasia 2+ Anisocytosis 3+ Microcytosis 1+ Sodium 138.0 Potassium 4.7 Chloride 100 Carbon Dioxide 32 H Anion Gap 6 BUN 14 Creatinine 1.27 H Est GFR ( Amer) 49 L Est GFR (Non-Af Amer) 41 L Glucose 93 Calcium 7.2 L Total Bilirubin 0.4 Direct Bilirubin 0.2 Neonat Total Bilirubin Not Reportable Neonat Direct Bilirubin Not Reportable Neonat Indirect Bili Not Reportable AST 17 ALT 14 Alkaline Phosphatase 72 Total Protein 5.9 L Albumin 3.1 L Urine Color Urine Appearance Urine pH Ur Specific [place] Urine Protein Urine Glucose (UA) Urine Ketones Urine Blood Urine Nitrite Urine Bilirubin Urine Urobilinogen Ur Leukocyte Esterase Urine WBC (Auto) Urine RBC (Auto) Urine Bacteria (Auto) Urine WBC Clumps Urine Ascorbic Acid Stool Occult Blood Slides for Path Review Blood Type A POSITIVE Blood Type Confirm Antibody Screen NEGATIVE Crossmatch See Detail 12/04/18 12/04/18 12/04/18 14:24 15:25 16:40 WBC RBC Hgb Hct MCV MCH MCHC RDW Plt Count Total Counted Seg Neutrophils % Seg Neuts % (Manual) Band Neutrophils % Lymphocytes % Lymphocytes % (Manual) Monocytes % Monocytes % (Manual) Eosinophils % Eosinophils % (Manual) Basophils % Basophils % (Manual) Absolute Neutrophils Abs Neuts (Manual) Absolute Lymphocytes Abs Lymphs (Manual) Absolute Monocytes Abs Monocytes (Manual) Absolute Eosinophils Absolute Eos (Manual) Absolute Basophils Abs Basophils (Manual) Platelet Estimate Platelet Comment Polychromasia Hypochromasia Anisocytosis Microcytosis Sodium Potassium Chloride Carbon Dioxide Anion Gap BUN Creatinine Est GFR ( Amer) Est GFR (Non-Af Amer) Glucose Calcium Total Bilirubin Direct Bilirubin Neonat Total Bilirubin Neonat Direct Bilirubin Neonat Indirect Bili AST ALT Alkaline Phosphatase Total Protein Albumin Urine Color YELLOW Urine Appearance TURBID Urine pH 8.0 Ur Specific [place] 1.008 Urine Protein 100 H Urine Glucose (UA) NEGATIVE Urine Ketones NEGATIVE Urine Blood SMALL H Urine Nitrite POSITIVE H Urine Bilirubin NEGATIVE Urine Urobilinogen NEGATIVE Ur Leukocyte Esterase LARGE H Urine WBC (Auto) >182 Urine RBC (Auto) 32 Urine Bacteria (Auto) 3+ Urine WBC Clumps MANY Urine Ascorbic Acid NEGATIVE Stool Occult Blood NEGATIVE Slides for Path Review Blood Type Blood Type Confirm A POSITIVE Antibody Screen Crossmatch 12/04/18 18:30 Patient with known history of iron deficiency and 6.9. Today hemoglobin is 7.4. Stool is negative for occult blood. Unfortunately the patient found out that her this morning after a herrera with cancer. Patient did receive 1 unit of PRBCs. She is currently taking iron supplementation. Urinalysis consistent with urinary tract infection for which ceftriaxone was given. Patient was discharged home back to the nursing facility with a prescription for Keflex. Patient presented after blood work performed yesterday showed a hemoglobin of 6.9. Vitals wnl. Denies urinary symptoms of increased frequency, hematuria, dysuria, urgency. No history of fever, flank pain, or constitution symptoms to suggest ascending infection at this time. Patient is well in appearance, tolerating oral intake without difficulty. No focal abdominal tenderness to suggest acute appendicitis, biliary pathology, acute pancreatitis, tubo-ovarian abscesses, or pelvic inflammatory disease. Patient will be started on antibiotics at this time. A culture has been sent. They will be discharged with return precautions and follow-up recommendations. Patient was evaluated and treated as appropriate for the patient's presenting symptoms and complaint, with consideration of any critical or life threatening conditions that may be associated with their obtained history and exam as noted above. All results were discussed with patient and her daughter. Patient provided the opportunity to ask questions, and express concerns. Patient was educated on treatments based on their presumed diagnosis as noted above. At this time we will discharge the patient with return precautions and follow-up recommendations. Verbal discharge instructions given a the bedside. Medication warnings reviewed. Patient is in agreement with this plan and has verbalized understanding of return precautions. After careful consideration I feel that that patient can be safely discharged from the emergency department, they were advised to followup with a primary care physician in 2-3 days. Dictation on this chart was performed using voice recognition software and may result in unintended grammatical, spelling, syntax or errors. 12/04/18 23:10 12/04/18 23:12 - Vital Signs Vital signs: Temp Pulse Resp BP Pulse Ox 98.0 F 73 17 143/65 H 95 12/04/18 22:20 12/04/18 18:48 12/04/18 20:43 12/04/18 20:43 12/04/18 20:43 - Laboratory Result Diagrams: 12/04/18 13:50 12/04/18 13:50 Laboratory results interpreted by me: 12/04/18 12/04/18 12/04/18 13:50 13:50 13:50 RBC 3.14 L Hgb 7.6 L Hct 23.6 L MCV 75 L D MCH 24.3 L RDW 24.3 H Band Neutrophils % 1 L Lymphocytes % (Manual) 11 L Eosinophils % (Manual) 9 H Carbon Dioxide 32 H Creatinine 1.27 H Est GFR ( Amer) 49 L Est GFR (Non-Af Amer) 41 L Calcium 7.2 L Total Protein 5.9 L Albumin 3.1 L Urine Protein Urine Blood Urine Nitrite Ur Leukocyte Esterase Crossmatch See Detail 12/04/18 15:25 RBC Hgb Hct MCV MCH RDW Band Neutrophils % Lymphocytes % (Manual) Eosinophils % (Manual) Carbon Dioxide Creatinine Est GFR ( Amer) Est GFR (Non-Af Amer) Calcium Total Protein Albumin Urine Protein 100 H Urine Blood SMALL H Urine Nitrite POSITIVE H Ur Leukocyte Esterase LARGE H Crossmatch Discharge - Discharge Clinical Impression: Acute kidney injury, Hypoalbuminemia Anemia Qualifiers: Anemia type: iron deficiency Iron deficiency anemia type: unspecified iron deficiency Qualified Code(s): D50.9 - Iron deficiency anemia, unspecified Urinary tract infection Qualifiers: Urinary tract infection type: site unspecified Hematuria presence: with hematuria Qualified Code(s): N39.0 - Urinary tract infection, site not specified Condition: Good Disposition: SNF-Other Instructions: Anemia ([facility]), Urinary Tract Infection ([facility]) Additional Instructions: Your urine shows findings consistent with a urinary tract infection. Please take all the antibiotics as directed even if your symptoms have improved. Please follow-up with your primary care physician as needed. Return to emergency room if you develop fever >101F, persistent vomiting, become lethargic, have severe pain in your sides, or any other symptoms that are concerning to you. Prescriptions: Cephalexin Monohydrate [Keflex 500 mg Capsule] 500 mg PO BID 7 Days #14 capsule Cephalexin Monohydrate [Keflex 500 mg Capsule] 500 mg PO BID 7 Days #14 capsule Forms: Elevated Blood Pressure Referrals: STEW BURNS MD [Primary Care Provider] - Follow up as needed
[2018-12-04 15:49] LABS: APPEARANCE,URINE TURBID; BILIRUBIN,URINE NEGATIVE (NEGATIVE); COLOR,URINE YELLOW; GLUCOSE, URINE NEGATIVE (NEGATIVE); KETONES,URINE NEGATIVE (NEGATIVE); LEUKOCYTE ESTERASE,URINE LARGE (NEGATIVE); NITRITE,URINE POSITIVE (NEGATIVE); PROTEIN,URINE 100 mg/dL (NEGATIVE); URINE SPECIFIC GRAVITY 1.008; UROBILINOGEN,URINE NEGATIVE mg/dL (<2.0)
[2018-12-04] MEDS ORDERED: CEFTRIAXONE 1 GM/D5W RTU 1 GM/50 ML RTUPB IV ONE (18:29)
[2018-12-04 20:58] VITALS: BP 143/65
== END 2018-12-05 ==
LOC: ER 12:04
DX: D50.9 Iron deficiency anemia, unspecified (principal); Z79.899 Other long term (current) drug therapy; N39.0 Urinary tract infection, site not specified; R31.9 Hematuria, unspecified; N17.9 Acute kidney failure, unspecified; E88.09 Other disorders of plasma-protein metabolism, not elsewhere classified; I10 Essential (primary) hypertension; R51 Headache; R42 Dizziness and giddiness; Z63.4 Disappearance and death of family member; Z88.8 Allergy status to other drugs, medicaments and biological substances; Z88.0 Allergy status to penicillin
CPT/HCPCS: 99284; 96365; 86900; 86901; 36415; 36430; 86850; 85025; 82272; 80053; 81001; 86920; P9016; J0696

== ENCOUNTER 2018-12-14 17:46 | Emergency (ER) | payer MEDICARE ==
[2018-12-14 18:42] LABS: ABSOLUTE EOSINOPHILS # (AUTO) 0.2 10^3/uL (0.0-0.6); ABSOLUTE LYMPHOCYTES (AUTO) 1.6 10^3/uL (0.5-4.7); ABSOLUTE MONOCYTES (AUTO) 0.3 10^3/uL (0.1-1.4); ABSOLUTE NEUT (AUTO) 2.4 10^3/uL (1.7-8.2); BASOPHILS % (AUTO) 0.6 % (0-2); EOSINOPHILS % (AUTO) 5.3 % (0-6); HEMATOCRIT 31.5 % (36.0-47.0); HEMOGLOBIN 10.2 g/dL (12.0-15.5); LYMPHOCYTES % (AUTO) 35.1 % (13-45); MEAN CORPUSCULAR HEMOGLOBIN 25.3 pg (27.0-33.4); MEAN CORPUSCULAR HGB CONC 32.3 g/dL (32.0-36.0); MEAN CORPUSCULAR VOLUME 78 fl (80-97); MONOCYTES % (AUTO) 7.1 % (3-13); PLATELET COUNT 295 10^3/uL (150-450); RED BLOOD COUNT 4.02 10^6/uL (3.72-5.28); RED CELL DISTRIBUTION WIDTH 24.6 % (11.5-14.0); SEGMENTED NEUTROPHILS % (AUTO) 51.9 % (42-78); TOTAL CELLS COUNTED % (AUTO) 100 %; WHITE BLOOD COUNT 4.6 10^3/uL (4.0-10.5)
[2018-12-14] MEDS ORDERED: MAG HYDROX/AL HYDROX/SIMETH SUSP 30 ML UDCUP PO ONE (18:45)
[2018-12-14] MEDS ORDERED: LIDOCAINE 2% VISCOUS SOLN 20 ML UDCUP PO ONE (18:45)
[2018-12-14] MEDS ORDERED: METOCLOPRAMIDE HCL ORAL SOLN 10 MG/10 ML UDCUP PO ONE (18:45)
--- NOTE | 2018-12-14 18:53 | ER Document Report ---
ED General - General Chief Complaint: Epigastric Pain Stated Complaint: EPIGASTRIC PAIN Time Seen by Provider: 12/14/18 18:22 Cannot obtain history due to: Dementia Notes: Patient is a 78-year-old female with a past history of dementia, esophageal reflux, presents with complaints of increased burping over the last 4-5 hours. Patient is a very poor historian secondary to dementia. States that her symptoms started gradually and have been worsening since onset. States that she tried some Mylanta without any relief. No obvious trigger for her symptoms today. Has had similar symptoms in the past. Is referred by EMS to the emergency department from her nursing facility. She denies any chest pain, shortness of breath, nausea, vomiting, or abdominal pain. TRAVEL OUTSIDE OF THE [place] IN LAST 30 DAYS: No - Related Data Allergies/Adverse Reactions: cyclobenzaprine [From Flexeril] Allergy (Verified 09/28/18 22:52) Penicillins Allergy (Verified 09/28/18 22:52) Past Medical History - General Information source: Patient Cannot obtain history due to: Dementia - Social History Smoking Status: Never Smoker Chew tobacco use (# tins/day): No Frequency of alcohol use: None Drug Abuse: None Lives with: Assisted Family History: Reviewed & Not Pertinent Patient has suicidal ideation: No Patient has homicidal ideation: No - Past Medical History Cardiac Medical History: Reports: Hx Hypercholesterolemia, Hx Hypertension Endocrine Medical History: Reports: Hx Hypothyroidism Renal/ Medical History: Denies: Hx Peritoneal Dialysis GI Medical History: Reports: Hx Gastroesophageal Reflux Disease Review of Systems - Review of Systems Notes: Constitutional: Negative for fever. HENT: Negative for sore throat. Eyes: Negative for visual changes. Cardiovascular: Negative for chest pain. Respiratory: Negative for shortness of breath. Gastrointestinal: Negative for abdominal pain, vomiting or diarrhea. Positive for belching Genitourinary: Negative for dysuria. Musculoskeletal: Negative for back pain. Skin: Negative for rash. Neurological: Negative for headaches, weakness or numbness. 10 point ROS negative except as marked above and in HPI. Physical Exam - Vital signs Vitals: Temp Pulse Resp BP Pulse Ox 97.9 F 80 22 H 164/85 H 96 12/14/18 17:50 12/14/18 17:50 12/14/18 17:50 12/14/18 17:50 12/14/18 17:50 Interpretation: Hypertensive Notes: PHYSICAL EXAMINATION: GENERAL: Well-appearing, well-nourished and in no acute distress. HEAD: Atraumatic, normocephalic. EYES: Pupils equal round and reactive to light, extraocular movements intact, sclera anicteric, conjunctiva are normal. ENT: nares patent, oropharynx clear without exudates. Moist mucous membranes. NECK: Normal range of motion, supple without lymphadenopathy LUNGS: Breath sounds clear to auscultation bilaterally and equal. No wheezes rales or rhonchi. HEART: Regular rate and rhythm without murmurs ABDOMEN: Soft, nontender, normoactive bowel sounds. No guarding, no rebound. No masses appreciated. EXTREMITIES: Normal range of motion, no pitting or edema. No cyanosis. NEUROLOGICAL: No focal neurological deficits. Moves all extremities spontaneously and on command. PSYCH: Alert, oriented to person and place but not year. Patient is belching loudly except when I began speaking to her. The patient undergoes several meds without doing it at all without any interruption of her speech pattern or conversation pattern. SKIN: Warm, Dry, normal turgor, no rashes or lesions noted. Course - Re-evaluation Re-evalutation: 12/14/18 18:52 Patient presents with signs and symptoms most consistent with likely gastroesophageal reflux. She has no chest pain, no abdominal pain, otherwise extremely well in appearance, vitals within normal as the exception of baseline hypertension. Patient did have clinical improvement during conversation and there may be a psychiatric component involved in today's presentation. She does have a history of complaints of having difficulty swallowing that likewise appeared somewhat psychiatric in nature in the past. The patient has been given a GI cocktail, famotidine, has had some improvement of her symptoms with these measures. Labs otherwise unremarkable. Troponin and EKG unremarkable. Does not appear to be any form of an atypical presentation of an HI. At this time will discharge with return precautions and follow-up recommendations. Verbal discharge instructions given a the bedside and opportunity for questions given. Medication warnings reviewed. Patient is in agreement with this plan and has verbalized understanding of return precautions and the need for primary care follow-up in the next 24-72 hours. - Vital Signs Vital signs: Temp Pulse Resp BP Pulse Ox 97.9 F 80 22 H 164/85 H 96 12/14/18 17:50 12/14/18 17:50 12/14/18 17:50 12/14/18 17:50 12/14/18 17:50 - Laboratory Result Diagrams: 12/14/18 18:21 12/14/18 18:21 - EKG Interpretation by Me Additional EKG results interpreted by me: 12/14/18 18:54 Sinus rhythm, rate 72, no ST elevations or depressions. QTC 443. Discharge - Discharge Clinical Impression: Belching Gastroesophageal reflux Qualifiers: Esophagitis presence: esophagitis presence not specified Qualified Code(s): K21.9 - Gastro-esophageal reflux disease without esophagitis Condition: Good Disposition: HOME, SELF-CARE Additional Instructions: Your symptoms appear to be most consistent with stomach or upper intestinal irritation. Take your antacid that started prescribed. You may also take medicine such as Pepto-Bismol or Tums to assist with your pain. Please return to emergency department immediately if you have worsening of your pain, shortness of breath, vomiting, become unable to exert yourself due to pain or difficulty breathing, you pass out, or have any pain that radiates into your a nat, jaw, or back. Please also return if you have any additional symptoms that are concerning to you. As we have discussed, the most important thing is lifestyle changes. You need to avoid smoking, sodas, tea, coffee, alcohol, spicy foods, and acidic foods such as citrus fruits, tomato based products, berries, and most fruit juices. Referrals: STEW BURNS MD [Primary Care Provider] - Follow up as needed
[2018-12-14 18:54] LABS: ALANINE AMINOTRANSFERASE 23 U/L (9-52); ALKALINE PHOSPHATASE 83 U/L (38-126); ANION GAP 9 (5-19); ASPARTATE AMINO TRANSFERASE 20 U/L (14-36); BILIRUBIN,DIRECT 0.1 mg/dL (0.0-0.4); BILIRUBIN,TOTAL 0.3 mg/dL (0.2-1.3); BLOOD UREA NITROGEN 9 mg/dL (7-20); CALCIUM 8.4 mg/dL (8.4-10.2); CARBON DIOXIDE 29 mmol/L (22-30); CHLORIDE 99 mmol/L (98-107); GLUCOSE 96 mg/dL (75-110); LIPASE 164.6 U/L (23-300); POTASSIUM 4.1 mmol/L (3.6-5.0); SODIUM 137.3 mmol/L (137-145); TOTAL PROTEIN 6.8 g/dL (6.3-8.2)
[2018-12-14 18:59] LABS: ANISOCYTOSIS 3+; HYPOCHROMASIA SLIGHT; OVALOCYTES SLIGHT; PLATELET COMMENT ADEQUATE; PLATELET GIANT PRESENT; PLATELET LARGE PRESENT; POIKILOCYTOSIS 1+; TEAR DROP CELLS SLIGHT
[2018-12-14 21:41] VITALS: BP 129/62
--- NOTE | 2018-12-15 19:25 | EKG REPORT ---
SEVERITY:- NORMAL ECG - SINUS RHYTHM : Confirmed by: Alina Mcfarland 15-Dec-2018 19:24:56
== END 2018-12-14 21:45 | disposition home health service (06) ==
LOC: ER 17:46
DX: K21.9 Gastro-esophageal reflux disease without esophagitis (principal); R14.2 Eructation; R10.13 Epigastric pain; F03.90 Unspecified dementia, unspecified severity, without behavioral disturbance, psychotic disturbance, mood disturbance, and anxiety; E78.00 Pure hypercholesterolemia, unspecified; I10 Essential (primary) hypertension; E03.9 Hypothyroidism, unspecified; Z88.0 Allergy status to penicillin
CPT/HCPCS: 93005; 99284; 36415; 83690; 85025; 80053; 84484; 93010; J3490; A9270

== ENCOUNTER 2020-01-18 14:26 | Inpatient (IN) | payer MEDICARE ==
[2020-01-18 15:12] LABS: INTERNATIONAL RATION (INR) 1.39; PROTHROMBIN TIME 17.2 SEC (11.4-15.4)
[2020-01-18 15:14] LABS: ALBUMIN 2.6 g/dL (3.5-5.0); ALKALINE PHOSPHATASE 89 U/L (38-126); ANION GAP 13 (5-19); ASPARTATE AMINO TRANSFERASE 48 U/L (14-36); BILIRUBIN,DIRECT 0.2 mg/dL (0.0-0.4); BILIRUBIN,TOTAL 0.6 mg/dL (0.2-1.3); BLOOD UREA NITROGEN 35 mg/dL (7-20); CALCIUM 7.4 mg/dL (8.4-10.2); CARBON DIOXIDE 24 mmol/L (22-30); CHLORIDE 97 mmol/L (98-107); GLUCOSE 103 mg/dL (75-110); POTASSIUM 3.3 mmol/L (3.6-5.0); TOTAL PROTEIN 7.5 g/dL (6.3-8.2)
--- NOTE | 2020-01-18 15:30 | RADIOLOGY REPORT (SQ) ---
EXAM DESCRIPTION: CHEST SINGLE VIEW COMPLETED DATE/TIME: 01/18/2020 2:54 pm REASON FOR STUDY: bed 12- sepsis protocol COMPARISON: 11/17/2018 EXAM PARAMETERS: NUMBER OF VIEWS: One view. TECHNIQUE: Single frontal radiographic view of the chest acquired. RADIATION DOSE: NA LIMITATIONS: None. FINDINGS: LUNGS AND PLEURA: No opacities, masses or pneumothorax. No pleural effusion. MEDIASTINUM AND HILAR STRUCTURES: No masses. Contour normal. HEART AND VASCULAR STRUCTURES: Heart normal in size. Normal vasculature. BONES: No acute findings. HARDWARE: None in the chest. OTHER: No other significant finding. IMPRESSION: NO ACUTE RADIOGRAPHIC FINDING IN THE CHEST. TECHNICAL DOCUMENTATION: JOB ID: [id number] 2010 [employer]- All Rights Reserved Reading location - IP/workstation name: [email or web address]
[2020-01-18 15:34] LABS: HEMATOCRIT 23.8 % (36.0-47.0); HEMOGLOBIN 8.2 g/dL (12.0-15.5); MEAN CORPUSCULAR HEMOGLOBIN 36.3 pg (27.0-33.4); MEAN CORPUSCULAR HGB CONC 34.4 g/dL (32.0-36.0); MEAN CORPUSCULAR VOLUME 106 fl (80-97); PLATELET COUNT 252 10^3/uL (150-450); RED BLOOD COUNT 2.26 10^6/uL (3.72-5.28); RED CELL DISTRIBUTION WIDTH 19.2 % (11.5-14.0); WHITE BLOOD COUNT 18.7 10^3/uL (4.0-10.5)
[2020-01-18] MEDS ORDERED: NORMAL SALINE 1000 ML 1,000 ML IV ONE (15:59)
[2020-01-18 16:06] LABS: VENOUS BLOOD BASE EXCESS 1.8 mmol/L; VENOUS BLOOD HCO3 25.5 mmol/L (20-32); VENOUS BLOOD PCO2 36.8 mmHg (35-63); VENOUS BLOOD PH 7.46 (7.30-7.42)
--- NOTE | 2020-01-18 16:15 | ER Document Report ---
ED General - General Chief Complaint: General Weakness Stated Complaint: WEAKNESS Time Seen by Provider: 01/18/20 15:48 Mode of Arrival: Ambulatory Information source: Patient, Relative TRAVEL OUTSIDE OF THE [place] IN LAST 30 DAYS: Yes - HPI Onset: Other - over the last 2 days Onset/Duration: Gradual Quality of pain: Achy Pain Level: 1 Associated symptoms: Weakness, Other - Poor PO intake Exacerbated by: Denies Relieved by: Denies Similar symptoms previously: No Recently seen / treated by doctor: No Notes: 79 year old female with a history of HTN, HLD, GERD, Hypothyroidism here for 2 days of generalized weakness, moderate abdominal pains, and foul colored urine. The patient has been some what incontinent of urine as well. The patient has not eaten or drank much in the last 2 days and she was so weak she couldn't get hers elf out of bed this morning. The patient lives with her granddaughter. - Related Data Allergies/Adverse Reactions: cyclobenzaprine [From Flexeril] Allergy (Verified 09/28/18 22:52) Penicillins Allergy (Verified 09/28/18 22:52) Past Medical History - General Information source: Patient - Social History Smoking Status: Former Smoker Frequency of alcohol use: None Drug Abuse: None Lives with: Family Family History: Reviewed & Not Pertinent Patient has suicidal ideation: No Patient has homicidal ideation: No - Past Medical History Cardiac Medical History: Reports: Hx Hypercholesterolemia, Hx Hypertension Endocrine Medical History: Reports: Hx Hypothyroidism Renal/ Medical History: Denies: Hx Peritoneal Dialysis GI Medical History: Reports: Hx Gastroesophageal Reflux Disease Review of Systems - Review of Systems Constitutional: Weakness, Other - Poor PO intake EENT: No symptoms reported Cardiovascular: No symptoms reported Respiratory: No symptoms reported Gastrointestinal: Abdominal pain Genitourinary: No symptoms reported Female Genitourinary: No symptoms reported Musculoskeletal: No symptoms reported Skin: No symptoms reported Hematologic/Lymphatic: No symptoms reported Neurological/Psychological: No symptoms reported -: Yes All other systems reviewed and negative Physical Exam - Vital signs Vitals: Temp Pulse Resp BP Pulse Ox 98.2 F 118 H 20 117/46 L 96 01/18/20 14:58 01/18/20 14:58 01/18/20 14:58 01/18/20 14:58 01/18/20 14:58 - Notes Notes: GENERAL: Chronically ill appearing, well-nourished and in no acute distress. HEAD: Atraumatic, normocephalic. EYES: Pupils equal round and reactive to light, extraocular movements intact, sclera anicteric, conjunctiva are normal. ENT: Nares patent, oropharynx clear without exudates. Moist mucous membranes. NECK: Normal range of motion, supple without lymphadenopathy or JVD. LUNGS: Breath sounds clear to auscultation bilaterally and equal. No wheezes rales or rhonchi. HEART: Tachycardic, normal rhythm without murmurs, rubs or gallops. ABDOMEN: Soft, moderate tenderness in lower abdomen, normoactive bowel sounds. No guarding, no rebound. No masses appreciated. EXTREMITIES: Normal range of motion, no pitting or edema. No clubbing or cyanosis. NEUROLOGICAL: Cranial nerves II through XII grossly intact. Normal speech, normal gait. PSYCH: Normal mood, normal affect. SKIN: Warm, Dry, normal turgor, no rashes or lesions noted. Course - Re-evaluation Re-evalutation: 01/18/20 16:52 The patient has a UTI with an elevated WBC count and elevated heart rate but she has no fevers and no elevated lactic acid. The patient has significant WALESKA today and she admits she hasnt been eating or drinking much. Will treat with fluids and Rocephin and admit. - Vital Signs Vital signs: Temp Pulse Resp BP Pulse Ox 98.2 F 118 H 20 117/46 L 96 01/18/20 14:58 01/18/20 14:58 01/18/20 14:58 01/18/20 14:58 01/18/20 15:09 - Laboratory Result Diagrams: 01/18/20 14:40 01/18/20 14:40 Laboratory results interpreted by me: 01/18/20 01/18/20 01/18/20 14:40 14:40 14:40 WBC 18.7 H RBC 2.26 L Hgb 8.2 L Hct 23.8 L MCV 106 H MCH 36.3 H RDW 19.2 H Seg Neuts % (Manual) 2 L Lymphocytes % (Manual) 52 H Monocytes % (Manual) 44 H Myelocytes % 2 H Abs Neuts (Manual) 0.7 L Abs Lymphs (Manual) 9.7 H Abs Monocytes (Manual) 8.2 H PT 17.2 H VBG pH Sodium 133.6 L Potassium 3.3 L Chloride 97 L BUN 35 H Creatinine 2.68 H Est GFR ( Amer) 21 L Est GFR (MDRD) Non-Af 17 L Calcium 7.4 L AST 48 H Albumin 2.6 L 01/18/20 14:58 WBC RBC Hgb Hct MCV MCH RDW Seg Neuts % (Manual) Lymphocytes % (Manual) Monocytes % (Manual) Myelocytes % Abs Neuts (Manual) Abs Lymphs (Manual) Abs Monocytes (Manual) PT VBG pH 7.46 H Sodium Potassium Chloride BUN Creatinine Est GFR ( Amer) Est GFR (MDRD) Non-Af Calcium AST Albumin - Diagnostic Test Radiology reviewed: Image reviewed, Reports reviewed - EKG Interpretation by Tx EKG shows normal: Sinus rhythm, [place], Intervals, QRS Complexes Rate: Normal Additional EKG results interpreted by ok: 01/18/20 16:56 T wave inversion in aVL Discharge - Discharge Clinical Impression: Dehydration Acute kidney failure Qualifiers: Acute renal failure type: unspecified Qualified Code(s): N17.9 - Acute kidney failure, unspecified UTI (urinary tract infection) Qualifiers: Urinary tract infection type: acute cystitis Hematuria presence: without hem aturia Qualified Code(s): N30.00 - Acute cystitis without hematuria Condition: Stable Disposition: ADMITTED INPATIENT Admitting Provider: Payal (Hospitalist) Unit Admitted: Telemetry
[2020-01-18 16:31] LABS: ABSOLUTE LYMPHOCYTES# (MANUAL) 9.7 10^3/uL (0.5-4.7); ABSOLUTE MONOCYTES # (MANUAL) 8.2 10^3/uL (0.1-1.4); ANISOCYTOSIS 2+; BASOPHILS % (MANUAL) 0 % (0-2); EOSINOPHILS % (MANUAL) 0 % (0-6); LYMPHOCYTES % (MANUAL) 52 % (13-45); OVALOCYTES SLIGHT; POLYCHROMASIA SLIGHT; SEGMENTED NEUTROPHILS % (MAN) 2 % (42-78); TEAR DROP CELLS SLIGHT; TOTAL CELLS COUNTED 100
[2020-01-18 16:32] LABS: MONOCYTES % (MANUAL) 44 % (3-13); MYELOCYTES % (MANUAL) 2 % (0); PLATELET COMMENT ADEQUATE
[2020-01-18] MEDS ORDERED: CEFTRIAXONE 1 GM/D5W RTU 1 GM/50 ML RTUPB IV ONE (16:45)
[2020-01-18] MEDS ORDERED: ONDANSETRON 4 MG TAB.RAPDIS PO PRN (17:07)
[2020-01-18] MEDS ORDERED: ONDANSETRON HCL INJ/PF 4 MG/2 ML SDV IV PRN (17:07)
--- NOTE | 2020-01-18 17:10 | RADIOLOGY REPORT (SQ) ---
EXAM DESCRIPTION: CT ABD/PELVIS NO ORAL OR IV COMPLETED DATE/TIME: 01/18/2020 4:58 pm REASON FOR STUDY: eval for cause of abdominal pain and elevated WBC COMPARISON: Same day radiograph TECHNIQUE: CT scan of the abdomen and pelvis performed without intravenous or oral contrast. Images reviewed with lung, soft tissue, and bone windows. Reconstructed coronal and sagittal MPR images revi ewed. All images stored on PACS. All CT scanners at this facility use dose modulation, iterative reconstruction, and/or weight based d osing when appropriate to reduce radiation dose to as low as reasonably achievable (ALARA). [facility]: Dose Right [facility]: CareDose [facility]: Dose Right [facility]: Teradose 4D [facility]: Smart [employer] RADIATION DOSE: mGy. LIMITATIONS: None. FINDINGS: LOWER CHEST: No significant findings. No nodules or infiltrates. NON-CONTRASTED LIVER, SPLEEN, ADRENALS: Evaluation limited by lack of IV contrast. No identified sign ificant masses. Calcified splenic granuloma. PANCREAS: No masses. No peripancreatic inflammatory changes. GALLBLADDER: Cholelithiasis. No evidence of pericholecystic inflammation. RIGHT KIDNEY AND URETER: No suspicious masses. Assessment limited by lack of IV contrast. No signif icant calcifications. No hydronephrosis or hydroureter. LEFT KIDNEY AND URETER: No suspicious masses. Assessment limited by lack of IV contrast. No signifi cant calcifications. No hydronephrosis or hydroureter. AORTA AND RETROPERITONEUM: Aortoiliac atherosclerosis. No aneurysm. No retroperitoneal adenopathy, mass or hemorrhage. BOWEL AND PERITONEAL CAVITY: Moderate hiatal hernia. No evidence of focal bowel wall thickening. No evidence of intestinal obstruction. APPENDIX: Normal. PELVIS, BLADDER, AND ABDOMINAL WALL:Distended urinary bladder. No pelvic adenopathy or mass. Suprau mbilical fat containing midline hernia. BONES: L1 compression deformity with approximately 50% central and anterior height loss. No signific ant retropulsion, findings similar to 10/06/2018 radiograph. No discrete lytic or blastic osseous les ions. Lower lumbar facet arthropathy. OTHER: No other significant finding. IMPRESSION: 1. Cholelithiasis without secondary evidence of acute cholecystitis. 2. Distended urinary bladder. Recommend correlation for evidence of bowel obstruction. 3. Moderate hiatal hernia. 4. Chronic additional findings as above. COMMENT: Quality ID # [id number]: Final reports with documentation of one or more dose reduction techniques (e.g., Automated exposure control, adjustment of the mA and/or kV according to patient size, use of iterative reconstruction technique) TECHNICAL DOCUMENTATION: JOB ID: [id number] 2010 [employer]- All Rights Reserved Reading location - IP/workstation name: [email or web address]
[2020-01-18] MEDS ORDERED: DEXTROSE 50%-WATER 25 GM/50 ML DISP.SYRIN IV PRN ×2 (17:17)
[2020-01-18] MEDS ORDERED: DEXTROSE 40% GEL 15 GM TUBE PO PRN ×2 (17:17)
[2020-01-18] MEDS ORDERED: GLUCAGON,HUMAN RECOMB 1 MG INJ IM PRN (17:17)
--- NOTE | 2020-01-18 17:29 | PDOC H&P ---
History of Present Illness Admission Date/PCP: 01/18/20 16:24 DORIS MARTÍNEZ History of Present Illness: BRADLEY CORREA is a 79 year old female comes in with a 3-day history of weakness, generalized, decreased appetite decreased p.o. intake. History is given by the daughter who sees the patient frequently and granddaughter who actually lives with the patient. The family 2 days ago on Friday they called EMS because their mother was weak. MS saw the patient evaluated and just said that patient did not need to go to the emergency room. Today the patient was so weak her and today she was so weak she could not get out of bed. Patient has a history of UTIs a couple years ago where she acted this exactly like this. Patient also has been unable to void today due to decreased p.o. intake. Patient has a elevated white count 18,000 and creatinine is elevated to 2.68 normally 1.5 Will be admitted to the hospital for IV fluids and IV antibiotics. According to the daughter the mother is a DNR Past Medical History Cardiac Medical History: Reports: Hyperlipidema, Hypertension Endocrine Medical History: Reports: Hypothyroidism GI Medical History: Reports: Gastroesophageal Reflux Disease Hematology: Reports: Anemia Social History Lives with: Family Smoking Status: Former Smoker Frequency of Alcohol Use: None Hx Recreational Drug Use: No Hx Prescription Drug Abuse: No - Advance Directive Resuscitation Status: Do Not Resuscitate Family History Family History: Reviewed & Not Pertinent Parental Family History Reviewed: No Children Family History Reviewed: No Sibling(s) Family History Reviewed.: No Medication/Allergy Home Medications: Atorvastatin Calcium [Lipitor 20 mg Tablet] 20 mg PO QHS 11/17/18 Bisoprolol/Hydrochlorothiazide [Bisoprolol-Hctz 5-6.25 mg Tab] 1 each PO DAILY 11/17/18 Levothyroxine Sodium [Synthroid 0.1 mg Tablet] 0.1 mg PO Q6AM 11/17/18 Losartan Potassium [Cozaar 100 mg Tablet] 100 mg PO DAILY 11/17/18 Omeprazole 20 mg PO DAILY 11/17/18 Ranitidine HCl [Zantac 150 mg Tablet] 150 mg PO QHS 11/17/18 Ferrous Sulfate [Feosol 325 mg Tablet] 325 mg PO BID #60 tablet 11/20/18 Acetaminophen [Tylenol 325 mg Tablet] 650 mg PO Q6HP PRN tablet 11/21/18 Tamsulosin HCl [Flomax 0.4 mg Cap.sr] 0.4 mg PO DAILY #7 cap.sr.24h 11/21/18 Cephalexin Monohydrate [Keflex 500 mg Capsule] 500 mg PO BID 7 Days #14 capsule 12/04/18 Cephalexin Monohydrate [Keflex 500 mg Capsule] 500 mg PO BID 7 Days #14 capsule 12/04/18 Allergies/Adverse Reactions: cyclobenzaprine [From Flexeril] Allergy (Verified 01/18/20 17:06) Penicillins Allergy (Verified 01/18/20 17:06) shrimp Allergy (Verified 01/18/20 17:06) Review of Systems Constitutional: PRESENT: anorexia, weakness Respiratory: ABSENT: cough, hemoptysis Gastrointestinal: ABSENT: abdominal pain, constipation, diarrhea, hematemesis, hematochezia, nausea, vomiting Genitourinary: PRESENT: dysuria Musculoskeletal: PRESENT: muscle weakness Neurological: ABSENT: abnormal gait, abnormal speech, confusion, dizziness, focal weakness, syncope Psychiatric: ABSENT: anxiety, depression, homidical ideation, suicidal ideation Physical Exam Vital Signs: Temp Pulse Resp BP Pulse Ox 98.2 F 118 H 20 117/46 L 96 01/18/20 14:58 01/18/20 14:58 01/18/20 14:58 01/18/20 14:58 01/18/20 15:09 Intake & Output 01/17/20 01/18/20 01/19/20 06:59 06:59 06:59 Intake Total 1000 Balance 1000 Weight 98.5 kg General appearance: PRESENT: mild distress Respiratory exam: PRESENT: clear to auscultation gordon. ABSENT: rales, rhonchi, wheezes Cardiovascular exam: PRESENT: RRR. ABSENT: diastolic murmur, rubs, systolic murmur GI/Abdominal exam: PRESENT: tenderness - Generalized Neurological exam: PRESENT: alert, awake, oriented to person, oriented to place, oriented to time, oriented to situation, CN II-XII grossly intact. ABSENT: motor sensory deficit Psychiatric exam: PRESENT: appropriate affect, normal mood. ABSENT: homicidal ideation, suicidal ideation Results Laboratory Results: 01/18/20 14:40 01/18/20 14:40 01/18/20 01/18/20 01/18/20 14:40 14:40 14:40 WBC 18.7 H RBC 2.26 L Hgb 8.2 L Hct 23.8 L MCV 106 H MCH 36.3 H MCHC 34.4 RDW 19.2 H Plt Count 252 Seg Neutrophils % Not Reportable VBG pH VBG pCO2 VBG HCO3 VBG Base Excess Sodium 133.6 L Potassium 3.3 L Chloride 97 L Carbon Dioxide 24 Anion Gap 13 BUN 35 H Creatinine 2.68 H Est GFR ( Amer) 21 L Glucose 103 Lactic Acid 1.8 Calcium 7.4 L Total Bilirubin 0.6 AST 48 H Alkaline Phosphatase 89 Total Protein 7.5 Albumin 2.6 L 01/18/20 14:58 WBC RBC Hgb Hct MCV MCH MCHC RDW Plt Count Seg Neutrophils % VBG pH 7.46 H VBG pCO2 36.8 VBG HCO3 25.5 VBG Base Excess 1.8 Sodium Potassium Chloride Carbon Dioxide Anion Gap BUN Creatinine Est GFR ( Amer) Glucose Lactic Acid Calcium Total Bilirubin AST Alkaline Phosphatase Total Protein Albumin Impressions: Chest X-Ray 01/18/20 14:36 IMPRESSION: NO ACUTE RADIOGRAPHIC FINDING IN THE CHEST. Abdomen/Pelvis CT 01/18/20 16:47 IMPRESSION: 1. Cholelithiasis without secondary evidence of acute cholecystitis. 2. Distended urinary bladder. Recommend correlation for evidence of bowel ob struction. 3. Moderate hiatal hernia. 4. Chronic additional findings as above. Assessment and Plan - Diagnosis (1) Hypocalcemia Is this a current diagnosis for this admission?: Yes (2) Dehydration Is this a current diagnosis for this admission?: Yes (3) UTI (urinary tract infection) Qualifiers: Urinary tract infection type: acute cystitis Hematuria presence: without hematuria Qualified Code(s): N30.00 - Acute cystitis without hematuria Is this a current diagnosis for this admission?: Yes (4) Acute kidney injury Is this a current diagnosis for this admission?: Yes - Plan Summary Summary: She will be admitted to the hospital for gentle IV fluid hydration, IV antibiotics.. Resume home meds tomorrow when patient is more stable. Lactic acid levels normal 1.8. Potassium 3.3 BUN of 35 creatinine 2.68 GFR of 17, calcium 7.4 White blood cell count 18,700 H&H 8.2 23.8, which is not too far off for normal values Patient is medically stable to move to the floor - Time Time Spent with patient: 35 or more minutes
[2020-01-18 18:37] LABS: APPEARANCE,URINE SLIGHTLY-CLOUDY; BILIRUBIN,URINE NEGATIVE (NEGATIVE); COLOR,URINE YELLOW; GLUCOSE, URINE NEGATIVE (NEGATIVE); KETONES,URINE NEGATIVE (NEGATIVE); PROTEIN,URINE 30 mg/dL (NEGATIVE); URINE SPECIFIC GRAVITY 1.017; UROBILINOGEN,URINE NEGATIVE mg/dL (<2.0)
--- NOTE | 2020-01-18 18:47 | EKG REPORT ---
SEVERITY:- ABNORMAL ECG - SINUS TACHYCARDIA PROBABLE LEFT VENTRICULAR HYPERTROPHY : Confirmed by: Alina Mcfarland 18-Jan-2020 18:46:59
[2020-01-18 18:52] LABS: ANION GAP 14 (5-19); BLOOD UREA NITROGEN 38 mg/dL (7-20); CALCIUM 7.1 mg/dL (8.4-10.2); CARBON DIOXIDE 21 mmol/L (22-30); CHLORIDE 99 mmol/L (98-107); GLUCOSE 141 mg/dL (75-110); POTASSIUM 3.3 mmol/L (3.6-5.0)
[2020-01-18] MEDS ORDERED: FAMOTIDINE 20 MG TABLET PO SCH (22:00)
[2020-01-18] MEDS: HEPARIN SOD (PORCINE) 5,000 UNIT/ML 1 ML VIAL SUBCUT SCH (22:14)
[2020-01-18] MEDS: FAMOTIDINE 20 MG TABLET PO SCH (22:14)
[2020-01-18] MEDS: INSULIN LISPRO 100 UNIT/ML 3 ML VIAL SUBCUT SCH (23:19)
[2020-01-19] MEDS: NORMAL SALINE 1000 ML 1,000 ML IV PRN (03:46)
[2020-01-19 04:36] LABS: INTERNATIONAL RATION (INR) 1.35; PROTHROMBIN TIME 16.8 SEC (11.4-15.4)
[2020-01-19 04:37] LABS: PARTIAL THROMBOPLASTIN TIME 31.3 SEC (23.5-35.8)
[2020-01-19 04:43] LABS: HEMATOCRIT 22.7 % (36.0-47.0); MEAN CORPUSCULAR HEMOGLOBIN 35.4 pg (27.0-33.4); MEAN CORPUSCULAR HGB CONC 33.6 g/dL (32.0-36.0); MEAN CORPUSCULAR VOLUME 105 fl (80-97); PLATELET COUNT 198 10^3/uL (150-450); RED BLOOD COUNT 2.16 10^6/uL (3.72-5.28); RED CELL DISTRIBUTION WIDTH 19.8 % (11.5-14.0); WHITE BLOOD COUNT 15.6 10^3/uL (4.0-10.5)
[2020-01-19] MEDS: HEPARIN SOD (PORCINE) 5,000 UNIT/ML 1 ML VIAL SUBCUT SCH ×3 (05:23→21:50)
[2020-01-19] MEDS: CEFTRIAXONE 1 GM/D5W RTU 1 GM/50 ML RTUPB IV SCH ×2 (05:23→17:20)
[2020-01-19] MEDS: ACETAMINOPHEN 325 MG TABLET PO PRN (05:28)
[2020-01-19 05:37] LABS: BASOPHILS % (MANUAL) 0 % (0-2); EOSINOPHILS % (MANUAL) 0 % (0-6); LYMPHOCYTES % (MANUAL) 45 % (13-45); MONOCYTES % (MANUAL) 45 % (3-13); MYELOCYTES % (MANUAL) 2 % (0); SEGMENTED NEUTROPHILS % (MAN) 8 % (42-78); TOTAL CELLS COUNTED 100
[2020-01-19 05:40] LABS: ANISOCYTOSIS 2+; OVALOCYTES SLIGHT; PLATELET COMMENT ADEQUATE; TEAR DROP CELLS SLIGHT
[2020-01-19 05:42] LABS: HEMOGLOBIN 7.6 g/dL (12.0-15.5)
[2020-01-19] MEDS: INSULIN LISPRO 100 UNIT/ML 3 ML VIAL SUBCUT SCH ×4 (09:17→21:51)
[2020-01-19] MEDS: DOCUSATE SODIUM 100 MG CAPSULE PO SCH (09:20)
[2020-01-19 12:59] LABS: PATH REVIEW PATHOLOGIST REVIEWED
--- NOTE | 2020-01-19 14:03 | PDOC PROGRESS REPORT ---
Subjective Progress Note for:: 01/19/20 Reason For Visit: LEUKOCYTOSIS,WEAKNESS,UTI,HYPERTENSION,HYPERLIPIDE 01/19/2020 Patient admitted for UTI and generalized weakness Physical Exam Vital Signs: Temp Pulse Resp BP Pulse Ox 97.9 F 105 H 17 150/65 H 99 01/19/20 08:15 01/19/20 08:15 01/19/20 08:15 01/19/20 08:15 01/19/20 08:15 Intake & Output 01/18/20 01/19/20 01/20/20 06:59 06:59 06:59 Intake Total 1600 Output Total 300 Balance 1300 Weight 98.5 kg 98.5 kg General appearance: PRESENT: no acute distress, other - Patient looks like she is feeling better today Respiratory exam: PRESENT: clear to auscultation gordon. ABSENT: rales, rhonchi, wheezes Cardiovascular exam: PRESENT: RRR. ABSENT: diastolic murmur, rubs, systolic murmur GI/Abdominal exam: PRESENT: soft Musculoskeletal exam: PRESENT: other - Patient is complaining of some right upper extremity stiffness and soreness Neurological exam: PRESENT: alert, awake, oriented to person, oriented to place, oriented to time, oriented to situation, CN II-XII grossly intact. ABSENT: motor sensory deficit Psychiatric exam: PRESENT: appropriate affect, normal mood. ABSENT: homicidal ideation, suicidal ideation Results Laboratory Results: 01/19/20 04:03 01/18/20 18:29 01/18/20 01/18/20 01/18/20 14:40 14:40 14:40 WBC 18.7 H RBC 2.26 L Hgb 8.2 L Hct 23.8 L MCV 106 H MCH 36.3 H MCHC 34.4 RDW 19.2 H Plt Count 252 Seg Neutrophils % Not Reportable VBG pH VBG pCO2 VBG HCO3 VBG Base Excess Sodium 133.6 L Potassium 3.3 L Chloride 97 L Carbon Dioxide 24 Anion Gap 13 BUN 35 H Creatinine 2.68 H Est GFR ( Amer) 21 L Glucose 103 Lactic Acid 1.8 Calcium 7.4 L Magnesium Total Bilirubin 0.6 AST 48 H Alkaline Phosphatase 89 Total Protein 7.5 Albumin 2.6 L Urine Color Urine Appearance Urine pH Ur Specific [place] Urine Protein Urine Glucose (UA) Urine Ketones Urine Blood Urine RBC (Auto) 0201/18/20 01/18/20 14:58 18:10 18:29 WBC RBC Hgb Hct MCV MCH MCHC RDW Plt Count Seg Neutrophils % VBG pH 7.46 H VBG pCO2 36.8 VBG HCO3 25.5 VBG Base Excess 1.8 Sodium Potassium Chloride Carbon Dioxide Anion Gap BUN Creatinine Est GFR ( Amer) Glucose Lactic Acid 1.8 Calcium Magnesium Total Bilirubin AST Alkaline Phosphatase Total Protein Albumin Urine Color YELLOW Urine Appearance SLIGHTLY-CLOUDY Urine pH 5.0 Ur Specific [place] 1.017 Urine Protein 30 H Urine Glucose (UA) NEGATIVE Urine Ketones NEGATIVE Urine Blood MODERATE H Urine RBC (Auto) 1 01/18/20 01/18/20 01/19/20 18:29 21:04 04:03 WBC 15.6 H RBC 2.16 L Hgb 7.6 L Hct 22.7 L MCV 105 H MCH 35.4 H MCHC 33.6 RDW 19.8 H Plt Count 198 Seg Neutrophils % Not Reportable VBG pH VBG pCO2 VBG HCO3 VBG Base Excess Sodium 134.0 L Potassium 3.3 L Chloride 99 Carbon Dioxide 21 L Anion Gap 14 BUN 38 H Creatinine 2.47 H Est GFR ( Amer) 23 L Glucose 141 H Lactic Acid 1.4 Calcium 7.1 L Magnesium Total Bilirubin AST Alkaline Phosphatase Total Protein Albumin Urine Color Urine Appearance Urine pH Ur Specific [place] Urine Protein Urine Glucose (UA) Urine Ketones Urine Blood Urine RBC (Auto) 01/19/20 04:03 WBC RBC Hgb Hct MCV MCH MCHC RDW Plt Count Seg Neutrophils % VBG pH VBG pCO2 VBG HCO3 VBG Base Excess Sodium Potassium Chloride Carbon Dioxide Anion Gap BUN Creatinine Est GFR ( Amer) Glucose Lactic Acid Calcium Magnesium 1.9 Total Bilirubin AST Alkaline Phosphatase Total Protein Albumin Urine Color Urine Appearance Urine pH Ur Specific [place] Urine Protein Urine Glucose (UA) Urine Ketones Urine Blood Urine RBC (Auto) Impressions: Chest X-Ray 01/18/20 14:36 IMPRESSION: NO ACUTE RADIOGRAPHIC FINDING IN THE CHEST. Abdomen/Pelvis CT 01/18/20 16:47 IMPRESSION: 1. Cholelithiasis without secondary evidence of acute ch olecystitis. 2. Distended urinary bladder. Recommend correlation for evidence of bowel obstruction. 3. Moderate hiatal hernia. 4. Chronic additional findings as above. Assessment and Plan - Diagnosis (1) Hypocalcemia Is this a current diagnosis for this admission?: Yes (2) Dehydration Is this a current diagnosis for this admission?: Yes (3) UTI (urinary tract infection) Qualifiers: Urinary tract infection type: acute cystitis Hematuria presence: without hematuria Qualified Code(s): N30.00 - Acute cystitis without hematuria Is this a current diagnosis for this admission?: Yes (4) Acute kidney injury Is this a current diagnosis for this admission?: Yes - Plan Summary Summary: She will be admitted to the hospital for gentle IV fluid hydration, IV an tibiotics.. Resume home meds tomorrow when patient is more stable. Lactic acid levels normal 1.8. Potassium 3.3 BUN of 35 creatinine 2.68 GFR of 17, calcium 7.4 White blood cell count 18,700 H&H 8.2 23.8, which is not too far off for normal values Patient is medically stable to move to the floor 01/19/2020 Temperature 97.9, pulse is stable at 105, blood pressure 150/65, oxygen saturation is 99% at room air White blood cell count has come down to 15.6, hemoglobin is drifted down to 7.6 from 8.2. We will watch this closely over the next several days Chemistry panel will be repeated tomorrow Patient is getting Rocephin 1 g IV every 12 hours is also getting normal saline at 125/h. I have reconciled her home meds today Urine culture shows no growth in 24 hours Patient appears medically stable - Time Time Spent with patient: 15-24 minutes
[2020-01-19] MEDS ORDERED: (PENDING PHARMACY ID) (Valsartan [Valsartan] 320 MG) PO SCH (14:15)
[2020-01-19] MEDS ORDERED: HYDROCHLOROTHIAZIDE PO SCH (14:15)
[2020-01-19] MEDS ORDERED: [UNRECOGNIZED DRUG - OTHER] PO SCH (14:15)
[2020-01-19] MEDS ORDERED: BISOPROLOL PO SCH (14:15)
[2020-01-19 15:38] LABS: ANION GAP 11 (5-19); BLOOD UREA NITROGEN 36 mg/dL (7-20); CARBON DIOXIDE 23 mmol/L (22-30); CHLORIDE 101 mmol/L (98-107); GLUCOSE 109 mg/dL (75-110)
[2020-01-19 15:49] LABS: CALCIUM 6.9 mg/dL (8.4-10.2); POTASSIUM 2.7 mmol/L (3.6-5.0)
[2020-01-19] MEDS ORDERED: CALCIUM CARBONATE 600 MG TABLET PO ONE (17:00)
[2020-01-19] MEDS ORDERED: POTASSIUM CHLORIDE 10 MEQ TABLET.ER PO ONE (17:00)
[2020-01-19] MEDS: ATENOLOL 50 MG TABLET PO SCH (17:19)
[2020-01-19] MEDS: VALSARTAN 160 MG TABLET PO SCH (17:19)
[2020-01-19] MEDS: CALCITRIOL 0.25 MCG CAPSULE PO SCH (17:19)
[2020-01-19] MEDS: HYDROCHLOROTHIAZIDE 12.5 MG TABLET PO SCH (17:20)
[2020-01-19] MEDS: FERROUS SULFATE 325 MG TABLET PO SCH (17:20)
[2020-01-19] MEDS: FAMOTIDINE 20 MG TABLET PO SCH (21:51)
[2020-01-19] MEDS: TRAMADOL HCL 50 MG TABLET PO PRN (21:51)
[2020-01-20] MEDS ORDERED: LEVOTHYROXINE SODIUM 0.075 MG TABLET PO SCH (06:00)
[2020-01-20] MEDS: CEFTRIAXONE 1 GM/D5W RTU 1 GM/50 ML RTUPB IV SCH ×2 (06:08→17:52)
[2020-01-20] MEDS: HEPARIN SOD (PORCINE) 5,000 UNIT/ML 1 ML VIAL SUBCUT SCH ×3 (06:09→21:35)
[2020-01-20 06:22] LABS: HEMATOCRIT 22.2 % (36.0-47.0); MEAN CORPUSCULAR HEMOGLOBIN 35.5 pg (27.0-33.4); MEAN CORPUSCULAR HGB CONC 33.6 g/dL (32.0-36.0); MEAN CORPUSCULAR VOLUME 106 fl (80-97); PLATELET COUNT 186 10^3/uL (150-450); RED CELL DISTRIBUTION WIDTH 19.6 % (11.5-14.0); WHITE BLOOD COUNT 11.7 10^3/uL (4.0-10.5)
[2020-01-20 06:58] LABS: HEMOGLOBIN 7.5 g/dL (12.0-15.5)
[2020-01-20 07:02] LABS: ABSOLUTE LYMPHOCYTES# (MANUAL) 4.1 10^3/uL (0.5-4.7); BASOPHILS % (MANUAL) 0 % (0-2); EOSINOPHILS % (MANUAL) 0 % (0-6); LYMPHOCYTES % (MANUAL) 33 % (13-45); MONOCYTES % (MANUAL) 51 % (3-13); MYELOCYTES % (MANUAL) 4 % (0); NUCLEATED RED BLOOD CELLS 3 /100 WBC (0); SEGMENTED NEUTROPHILS % (MAN) 10 % (42-78); TOTAL CELLS COUNTED 100
[2020-01-20 07:05] LABS: ANISOCYTOSIS 2+; OVALOCYTES SLIGHT; TEAR DROP CELLS SLIGHT
[2020-01-20 07:06] LABS: PLATELET COMMENT ADEQUATE; POIKILOCYTOSIS SLIGHT
[2020-01-20] MEDS: INSULIN LISPRO 100 UNIT/ML 3 ML VIAL SUBCUT SCH ×4 (08:38→21:36)
[2020-01-20] MEDS: FERROUS SULFATE 325 MG TABLET PO SCH ×2 (09:39→17:52)
[2020-01-20] MEDS: CALCIUM CARBONATE 600 MG TABLET PO SCH ×2 (09:39→17:52)
[2020-01-20] MEDS: DOCUSATE SODIUM 100 MG CAPSULE PO SCH (09:40)
[2020-01-20] MEDS: VALSARTAN 160 MG TABLET PO SCH (09:40)
[2020-01-20] MEDS: CALCITRIOL 0.25 MCG CAPSULE PO SCH (09:40)
[2020-01-20] MEDS: ATENOLOL 50 MG TABLET PO SCH (09:40)
[2020-01-20] MEDS: HYDROCHLOROTHIAZIDE 12.5 MG TABLET PO SCH (09:40)
[2020-01-20] MEDS ORDERED: CALCITRIOL 1 MCG PO SCH (10:00)
[2020-01-20] MEDS ORDERED: POTASSIUM CHLORIDE 10 MEQ TABLET.ER PO SCH (10:00)
--- NOTE | 2020-01-20 12:57 | PDOC PROGRESS REPORT ---
Subjective Progress Note for:: 01/20/20 Reason For Visit: LEUKOCYTOSIS,WEAKNESS,UTI,HYPERTENSION,HYPERLIPIDE 01/20/2020 Generalized weakness, UTI, hypertension Physical Exam Vital Signs: Temp Pulse Resp BP Pulse Ox 98 F 81 18 119/55 L 98 01/19/20 21:00 01/20/20 07:00 01/19/20 21:00 01/19/20 21:00 01/19/20 21:00 Intake & Output 01/19/20 01/20/20 01/21/20 06:59 06:59 06:59 Intake Total 1600 1448 Output Total 300 2300 Balance 1300 -852 Weight 98.5 kg 102.6 kg General appearance: PRESENT: no acute distress, other - Complains of just generalized weakness Respiratory exam: PRESENT: clear to auscultation gordon. ABSENT: rales, rhonchi, wheezes Cardiovascular exam: PRESENT: RRR. ABSENT: diastolic murmur, rubs, systolic murmur Neurological exam: PRESENT: alert, awake, oriented to person, oriented to place, oriented to time, oriented to situation, CN II-XII grossly intact. ABSENT: motor sensory deficit Psychiatric exam: PRESENT: appropriate affect, normal mood. ABSENT: homicidal ideation, suicidal ideation Results Laboratory Results: 01/20/20 04:10 01/19/20 15:05 01/19/20 01/20/20 01/20/20 15:05 04:10 04:10 WBC 11.7 H RBC 2.10 L Hgb 7.5 L Hct 22.2 L MCV 106 H MCH 35.5 H MCHC 33.6 RDW 19.6 H Plt Count 186 Seg Neutrophils % Not Reportable Sodium 134.9 L Potassium 2.7 L* Chloride 101 Carbon Dioxide 23 Anion Gap 11 BUN 36 H Creatinine 2.30 H Est GFR ( Amer) 25 L Glucose 109 Calcium 6.9 L* TSH 11.90 H 01/18/20 18:10 Kirk Catheter Urine Culture - Final NO GROWTH 2 DAYS Impressions: Chest X-Ray 01/18/20 14:36 IMPRESSION: NO ACUTE RADIOGRAPHIC FINDING IN THE CHEST. Abdomen/Pelvis CT 01/18/20 16:47 IMPRESSION: 1. Cholelithiasis without secondary evidence of acute cholecystitis. 2. Distended urinary bladder. Recommend correlation for evidence of bowel obstruction. 3. Moderate hiatal hernia. 4. Chronic additional findings as above. Assessment and Plan - Diagnosis (1) Hypocalcemia Is this a current diagnosis for this admission?: Yes (2) Dehydration Is this a current diagnosis for this admission?: Yes (3) UTI (urinary tract infection) Qualifiers: Urinary tract infection type: acute cystitis Hematuria presence: without hematuria Qualified Code(s): N30.00 - Acute cystitis without hematuria Is this a current diagnosis for this admission?: Yes (4) Acute kidney injury Is this a current diagnosis for this admission?: Yes (6) Generalized weakness Is this a current diagnosis for this admission?: Yes - Plan Summary Summary: She will be admitted to the hospital for gentle IV fluid hydration, IV antibioti cs.. Resume home meds tomorrow when patient is more stable. Lactic acid levels normal 1.8. Potassium 3.3 BUN of 35 creatinine 2.68 GFR of 17, calcium 7.4 White blood cell count 18,700 H&H 8.2 23.8, which is not too far off for normal values Patient is medically stable to move to the floor 01/19/2020 Temperature 97.9, pulse is stable at 105, blood pressure 150/65, oxygen saturation is 99% at room air White blood cell count has come down to 15.6, hemoglobin is drifted down to 7.6 from 8.2. We will watch this closely over the next several days Chemistry panel will be repeated tomorrow Patient is getting Rocephin 1 g IV every 12 hours is also getting normal saline at 125/h. I have reconciled her home meds today Urine culture shows no growth in 24 hours Patient appears medically stable 01/20/2020 Vital signs are stable, blood pressure slightly high White count is coming down now at 11.2 hemoglobin is stabilized at 7.5 TSH is elevated 11.9. Will increase her Synthroid Chemistry panel is pending. Yesterday patient was given p.o. calcium as well as p.o. potassium Overall patient states she is feeling some better Patient is complaining of generalized weakness will ask physical therapy to see her. She states that she has been getting weaker even before she came into the hospital 1 blood culture is growing out gram-positive cocci urine culture shows no growth in 2 days In the emergency room it was thought that the patient may have a UTI but this does not appear to be the case. We will continue with IV Rocephin and IV fluids - Time Time Spent with patient: 15-24 minutes
[2020-01-20] MEDS: NORMAL SALINE 1000 ML 1,000 ML IV PRN ×2 (13:15→23:51)
[2020-01-20] MEDS: POLYETHYLENE GLYCOL 3350 POWDER 17 GM/1 PACKET PO SCH (13:15)
[2020-01-20 13:46] LABS: ANION GAP 10 (5-19); BLOOD UREA NITROGEN 31 mg/dL (7-20); CARBON DIOXIDE 22 mmol/L (22-30); CHLORIDE 105 mmol/L (98-107); GLUCOSE 87 mg/dL (75-110); POTASSIUM 3.6 mmol/L (3.6-5.0)
[2020-01-20] MEDS: TRAMADOL HCL 50 MG TABLET PO PRN ×2 (13:56→21:36)
[2020-01-20 13:59] LABS: CALCIUM 6.8 mg/dL (8.4-10.2)
[2020-01-20] MEDS: CALCIUM GLUC IN NACL, ISO-OSM 1 GM/50 ML RTUPB IV SCH ×2 (15:02→16:44)
[2020-01-20] MEDS: POTASSIUM CHLORIDE 20 MEQ PACKET PO SCH (17:52)
[2020-01-20] MEDS: FAMOTIDINE 20 MG TABLET PO SCH (21:35)
[2020-01-21] MEDS: CEFTRIAXONE 1 GM/D5W RTU 1 GM/50 ML RTUPB IV SCH ×2 (05:27→17:49)
[2020-01-21] MEDS: LEVOTHYROXINE SODIUM 0.1 MG TABLET PO SCH (05:28)
[2020-01-21] MEDS: HEPARIN SOD (PORCINE) 5,000 UNIT/ML 1 ML VIAL SUBCUT SCH ×3 (05:29→21:29)
[2020-01-21 05:34] LABS: HEMATOCRIT 21.9 % (36.0-47.0); MEAN CORPUSCULAR HEMOGLOBIN 36.9 pg (27.0-33.4); MEAN CORPUSCULAR HGB CONC 34.6 g/dL (32.0-36.0); MEAN CORPUSCULAR VOLUME 107 fl (80-97); PLATELET COUNT 164 10^3/uL (150-450); RED BLOOD COUNT 2.05 10^6/uL (3.72-5.28); RED CELL DISTRIBUTION WIDTH 20.2 % (11.5-14.0); WHITE BLOOD COUNT 10.9 10^3/uL (4.0-10.5)
[2020-01-21] MEDS ORDERED: LEVOTHYROXINE SODIUM 0.075 MG TABLET PO SCH (06:00)
[2020-01-21 06:02] LABS: ABSOLUTE LYMPHOCYTES# (MANUAL) 4.6 10^3/uL (0.5-4.7); ABSOLUTE MONOCYTES # (MANUAL) 5.1 10^3/uL (0.1-1.4); BASOPHILS % (MANUAL) 0 % (0-2); EOSINOPHILS % (MANUAL) 0 % (0-6); LYMPHOCYTES % (MANUAL) 41 % (13-45); MONOCYTES % (MANUAL) 47 % (3-13); MYELOCYTES % (MANUAL) 4 % (0); SEGMENTED NEUTROPHILS % (MAN) 7 % (42-78); TOTAL CELLS COUNTED 100
[2020-01-21 06:04] LABS: PLATELET COMMENT ADEQUATE
[2020-01-21 06:05] LABS: ANISOCYTOSIS 2+
[2020-01-21 06:08] LABS: HEMOGLOBIN 7.6 g/dL (12.0-15.5)
[2020-01-21] MEDS: INSULIN LISPRO 100 UNIT/ML 3 ML VIAL SUBCUT SCH (08:37)
--- NOTE | 2020-01-21 10:13 | PDOC PROGRESS REPORT ---
Subjective Progress Note for:: 01/21/20 Reason For Visit: LEUKOCYTOSIS,WEAKNESS,UTI,HYPERTENSION,HYPERLIPIDE 01/21/2020, Patient admitted for generalized weakness, presumed UTI, hypertension, leukocytosis, hyperlipidemia Physical Exam Vital Signs: Temp Pulse Resp BP Pulse Ox 98.6 F 88 18 136/61 H 93 01/21/20 08:50 01/21/20 08:50 01/21/20 08:50 01/21/20 08:50 01/21/20 08:50 Intake & Output 01/20/20 01/21/20 01/22/20 06:59 06:59 06:59 Intake Total 2448 1767 Output Total 2300 1300 Balance 148 467 Weight 102.6 kg 102.5 kg General appearance: PRESENT: no acute distress, other - Patient sitting up in bed having already eaten breakfast feeling much better and much stronger Respiratory exam: PRESENT: clear to auscultation gordon. ABSENT: rales, rhonchi, wheezes Cardiovascular exam: PRESENT: RRR. ABSENT: diastolic murmur, rubs, systolic murmur Neurological exam: PRESENT: alert, awake, oriented to person, oriented to place, oriented to time, oriented to situation, CN II-XII grossly intact. ABSENT: motor sensory deficit Psychiatric exam: PRESENT: appropriate affect, normal mood. ABSENT: homicidal ideation, suicidal ideation Results Laboratory Results: 01/21/20 03:57 01/20/20 04:10 01/20/20 01/21/20 04:10 03:57 WBC 10.9 H RBC 2.05 L Hgb 7.6 L Hct 21.9 L MCV 107 H MCH 36.9 H MCHC 34.6 RDW 20.2 H Plt Count 164 Seg Neutrophils % Not Reportable Sodium 136.9 L Potassium 3.6 Chloride 105 Carbon Dioxide 22 Anion Gap 10 BUN 31 H Creatinine 2.01 H Est GFR ( Amer) 29 L Glucose 87 Calcium 6.8 L* 01/18/20 18:10 Kirk Catheter Urine Culture - Final NO GROWTH 2 DAYS Impressions: Chest X-Ray 01/18/20 14:36 IMPRESSION: NO ACUTE RADIOGRAPHIC FINDING IN THE CHEST. Abdomen/Pelvis CT 01/18/20 16:47 IMPRESSION: 1. Cholelithiasis without secondary evidence of acute cholecystitis. 2. Distended urinary bladder. Recommend correlation for evidence of bowel obstruction. 3. Moderate hiatal hernia. 4. Chronic additional findings as above. Assessment and Plan - Diagnosis (1) Hypocalcemia Is this a current diagnosis for this admission?: Yes (2) Dehydration Is this a current diagnosis for this admission?: Yes (3) UTI (urinary tract infection) Qualifiers: Urinary tract infection type: acute cystitis Hematuria presence: without hematuria Qualified Code(s): N30.00 - Acute cystitis without hematuria Is this a current diagnosis for this admission?: No (4) Acute kidney injury Is this a current diagnosis for this admission?: Yes (6) Generalized weakness Is this a current diagnosis for this admission?: Yes (7) Sepsis Is this a current diagnosis for this admission?: Yes - Plan Summary Summary: She will be admitted to the hospital for gentle IV fluid hydration, IV antibiotics.. Resume home meds tomorrow when patient is more stable. Lactic acid levels normal 1.8. Potassium 3.3 BUN of 35 creatinine 2.68 GFR of 17, calcium 7.4 White blood cell count 18,700 H&H 8.2 23.8, which is not too far off for normal values Patient is medically stable to move to the floor 01/19/2020 Temperature 97.9, pulse is stable at 105, blood pressure 150/65, oxygen saturation is 99% at room air White blood cell count has come down to 15.6, hemoglobin is drifted down to 7.6 from 8.2. We will watch this closely over the next several days Chemistry panel will be repeated tomorrow Patient is getting Rocephin 1 g IV every 12 hours is also getting normal saline at 125/h. I have reconciled her home meds today Urine culture shows no growth in 24 hours Patient appears medically stable 01/20/2020 Vital signs are stable, blood pressure slightly high White count is coming down now at 11.2 hemoglobin is stabilized at 7.5 TSH is elevated 11.9. Will increase her Synthroid Chemistry panel is pending. Yesterday patient was given p.o. calcium as well as p.o. potassium Overall patient states she is feeling some better Patient is complaining of generalized weakness will ask physical therapy to see her. She states that she has been getting weaker even before she came into the hospital 1 blood culture is growing out gram-positive cocci urine culture shows no growth in 2 days In the emergency room it was thought that the patient may have a UTI but this does not appear to be the case. We will continue with IV Rocephin and IV fluids 01/21/2020 Vital signs remaine stable temperature 98.6 pulse 88 blood pressure 136/61 O2 sat 93% on room air White blood cell count continues to trend down today it is 10.9 hemoglobin has stabilized at 7.6 Serum glucose level when she came in was 103 yesterday it was 87. Fingerstick blood sugars this morning were slightly low at 60 but have since come up to 78. Patient was on no medications for diabetes prior to coming in Electrolytes from today are pending with interest on the potassium and calcium levels Patient's Synthroid has been increased to 0.1 mg Patient's urine culture shows no growth, however 1 blood culture is positive. Patient is currently on IV Rocephin pending sensitivities Continue on current course with physical therapy to increase her overall strengt h. Continue IV antibiotics - Time Time Spent with patient: 15-24 minutes
[2020-01-21] MEDS: POLYETHYLENE GLYCOL 3350 POWDER 17 GM/1 PACKET PO SCH (11:59)
[2020-01-21] MEDS: FERROUS SULFATE 325 MG TABLET PO SCH ×2 (12:00→17:49)
[2020-01-21] MEDS: HYDROCHLOROTHIAZIDE 12.5 MG TABLET PO SCH (12:00)
[2020-01-21] MEDS: ATENOLOL 50 MG TABLET PO SCH (12:03)
[2020-01-21] MEDS: CALCITRIOL 0.25 MCG CAPSULE PO SCH (12:04)
[2020-01-21] MEDS: VALSARTAN 160 MG TABLET PO SCH (12:05)
[2020-01-21] MEDS: CALCIUM CARBONATE 600 MG TABLET PO SCH ×2 (12:06→17:49)
[2020-01-21] MEDS: DOCUSATE SODIUM 100 MG CAPSULE PO SCH (12:07)
[2020-01-21] MEDS: POTASSIUM CHLORIDE 20 MEQ PACKET PO SCH ×2 (12:07→17:49)
[2020-01-21] MEDS: ACETAMINOPHEN 325 MG TABLET PO PRN (17:50)
[2020-01-21] MEDS: FAMOTIDINE 20 MG TABLET PO SCH (21:29)
[2020-01-21] MEDS: TRAMADOL HCL 50 MG TABLET PO PRN (23:47)
[2020-01-22] MEDS: CEFTRIAXONE 1 GM/D5W RTU 1 GM/50 ML RTUPB IV SCH ×2 (05:42→17:17)
[2020-01-22] MEDS: HEPARIN SOD (PORCINE) 5,000 UNIT/ML 1 ML VIAL SUBCUT SCH ×3 (05:43→21:24)
[2020-01-22] MEDS: LEVOTHYROXINE SODIUM 0.1 MG TABLET PO SCH (05:43)
[2020-01-22] MEDS: POTASSIUM CHLORIDE 20 MEQ PACKET PO SCH ×2 (10:21→17:16)
[2020-01-22] MEDS: ATENOLOL 50 MG TABLET PO SCH (10:21)
[2020-01-22] MEDS: HYDROCHLOROTHIAZIDE 12.5 MG TABLET PO SCH (10:21)
[2020-01-22] MEDS: CALCITRIOL 0.25 MCG CAPSULE PO SCH (10:22)
[2020-01-22] MEDS: VALSARTAN 160 MG TABLET PO SCH (10:22)
[2020-01-22] MEDS: FERROUS SULFATE 325 MG TABLET PO SCH ×2 (10:22→17:16)
[2020-01-22] MEDS: CALCIUM CARBONATE 600 MG TABLET PO SCH ×2 (10:22→17:16)
[2020-01-22] MEDS: DOCUSATE SODIUM 100 MG CAPSULE PO SCH (10:42)
[2020-01-22] MEDS: POLYETHYLENE GLYCOL 3350 POWDER 17 GM/1 PACKET PO SCH (10:42)
--- NOTE | 2020-01-22 16:32 | PDOC PROGRESS REPORT ---
Subjective Progress Note for:: 01/22/20 Reason For Visit: LEUKOCYTOSIS,WEAKNESS,UTI,HYPERTENSION,HYPERLIPIDE 01/22/2020 Weakness, hypertension, leukocytosis Physical Exam Vital Signs: Temp Pulse Resp BP Pulse Ox 97.7 F 77 20 144/62 H 99 01/22/20 08:48 01/22/20 08:48 01/22/20 08:48 01/22/20 08:48 01/22/20 08:48 Intake & Output 01/21/20 01/22/20 01/23/20 06:59 06:59 06:59 Intake Total 1815 1744 560 Output Total 1300 1250 Balance 515 494 560 Weight 102.5 kg 106.5 kg General appearance: PRESENT: no acute distress, other - Patient states she is feeling much better Respiratory exam: PRESENT: clear to auscultation gordon. ABSENT: rales, rhonchi, wheezes Cardiovascular exam: PRESENT: RRR. ABSENT: diastolic murmur, rubs, systolic murmur Neurological exam: PRESENT: alert, awake, oriented to person, oriented to place, oriented to time, oriented to situation, CN II-XII grossly intact. ABSENT: motor sensory deficit Psychiatric exam: PRESENT: appropriate affect, normal mood. ABSENT: homicidal ideation, suicidal ideation Results Laboratory Results: 01/21/20 03:57 01/20/20 04:10 Impressions: Chest X-Ray 01/18/20 14:36 IMPRESSION: NO ACUTE RADIOGRAPHIC FINDING IN THE CHEST. Abdomen/Pelvis CT 01/18/20 16:47 IMPRESSION: 1. Cholelithiasis without secondary evidence of acute cholecystitis. 2. Distended urinary bladder. Recommend correlation for evidence of bowel obstruction. 3. Moderate hiatal hernia. 4. Chronic additional findings as above. Assessment and Plan - Diagnosis (1) Hypocalcemia Is this a current diagnosis for this admission?: Yes (2) Dehydration Is this a current diagnosis for this admission?: Yes (3) UTI (urinary tract infection) Qualifiers: Urinary tract infection type: acute cystitis Hematuria presence: without hematuria Qualified Code(s): N30.00 - Acute cystitis without hematuria Is this a current diagnosis for this admission?: No (4) Acute kidney injury Is this a current diagnosis for this admission?: Yes (6) Generalized weakness Is this a current diagnosis for this admission?: Yes (7) Sepsis Is this a current diagnosis for this admission?: Yes - Plan Summary Summary: She will be admitted to the hospital for gentle IV fluid hydration, IV antibiotics.. Resume home meds tomorrow when patient is more stable. Lactic acid levels normal 1.8. Potassium 3.3 BUN of 35 creatinine 2.68 GFR of 17, calcium 7.4 White blood cell count 18,700 H&H 8.2 23.8, which is not too far off for normal values Patient is medically stable to move to the floor 01/19/2020 Temperature 97.9, pulse is stable at 105, blood pressure 150/65, oxygen satur ation is 99% at room air White blood cell count has come down to 15.6, hemoglobin is drifted down to 7.6 from 8.2. We will watch this closely over the next several days Chemistry panel will be repeated tomorrow Patient is getting Rocephin 1 g IV every 12 hours is also getting normal saline at 125/h. I have reconciled her home meds today Urine culture shows no growth in 24 hours Patient appears medically stable 01/20/2020 Vital signs are stable, blood pressure slightly high White count is coming down now at 11.2 hemoglobin is stabilized at 7.5 TSH is elevated 11.9. Will increase her Synthroid Chemistry panel is pending. Yesterday patient was given p.o. calcium as well as p.o. potassium Overall patient states she is feeling some better Patient is complaining of generalized weakness will ask physical therapy to see her. She states that she has been getting weaker even before she came into the hospital 1 blood culture is growing out gram-positive cocci urine culture shows no growth in 2 days In the emergency room it was thought that the patient may have a UTI but this does not appear to be the case. We will continue with IV Rocephin and IV fluids 01/21/2020 Vital signs remaine stable temperature 98.6 pulse 88 blood pressure 136/61 O2 sat 93% on room air White blood cell count continues to trend down today it is 10.9 hemoglobin has stabilized at 7.6 Serum glucose level when she came in was 103 yesterday it was 87. Fingerstick blood sugars this morning were slightly low at 60 but have since come up to 78. Patient was on no medications for diabetes prior to coming in. Electrolytes from today are pending with interest on the potassium and calcium levels Patient's Synthroid has been increased to 0.1 mg Patient's urine culture shows no growth, however 1 blood culture is positive. Patient is currently on IV Rocephin pending sensitivities Continue on current course with physical therapy to increase her overall strength. Continue IV antibiotics Patient did have a bowel movement yesterday 01/22/2020 Patient was given a list of home health agencies yesterday and her daughter was going to call them pick 1 out in anticipation for discharge Patient does not want to go to [place] Patient states she is feeling much better This morning temperature 97.7 pulse 77 blood pressure 144/62, oxygen saturation 99% on room air CBC is normal, blood sugars are basically normal 1 out of 2 blood cultures is positive for strep para sanguinous. Patient is currently on IV Rocephin which it is sensitive to. According to the literature this can be treated with oral amoxicillin IV penicillin IV cephalosporins and IV vancomycin. Patient reportedly is allergic to penicillin although she has been tolerating Rocephin without any problems. It also appears to be sensitive to clindamycin, is what I will send the patient out to home on, 300 mg 3 times daily, for a total of a 10-day coverage including the Rocephin - Time Time Spent with patient: 25-34 minutes
[2020-01-22] MEDS: TRAMADOL HCL 50 MG TABLET PO PRN (19:52)
[2020-01-22] MEDS: FAMOTIDINE 20 MG TABLET PO SCH (21:24)
[2020-01-23] MEDS: LEVOTHYROXINE SODIUM 0.1 MG TABLET PO SCH (06:02)
[2020-01-23] MEDS: CEFTRIAXONE 1 GM/D5W RTU 1 GM/50 ML RTUPB IV SCH ×2 (06:02→17:25)
[2020-01-23] MEDS: HEPARIN SOD (PORCINE) 5,000 UNIT/ML 1 ML VIAL SUBCUT SCH ×3 (06:03→22:33)
[2020-01-23] MEDS: POTASSIUM CHLORIDE 20 MEQ PACKET PO SCH ×2 (10:33→17:25)
[2020-01-23] MEDS: CALCIUM CARBONATE 600 MG TABLET PO SCH ×2 (10:33→17:25)
[2020-01-23] MEDS: CALCITRIOL 0.25 MCG CAPSULE PO SCH (10:33)
[2020-01-23] MEDS: VALSARTAN 160 MG TABLET PO SCH (10:34)
[2020-01-23] MEDS: FERROUS SULFATE 325 MG TABLET PO SCH ×2 (10:34→17:25)
[2020-01-23] MEDS: ATENOLOL 50 MG TABLET PO SCH (10:34)
[2020-01-23] MEDS: HYDROCHLOROTHIAZIDE 12.5 MG TABLET PO SCH (10:34)
[2020-01-23] MEDS: POLYETHYLENE GLYCOL 3350 POWDER 17 GM/1 PACKET PO SCH (10:44)
[2020-01-23] MEDS: DOCUSATE SODIUM 100 MG CAPSULE PO SCH (10:44)
--- NOTE | 2020-01-23 14:47 | PDOC PROGRESS REPORT ---
Subjective Progress Note for:: 01/23/20 Reason For Visit: LEUKOCYTOSIS,WEAKNESS,UTI,HYPERTENSION,HYPERLIPIDE 01/23/20 Generalized weakness leukocytosis UTI hypertension Physical Exam Vital Signs: Temp Pulse Resp BP Pulse Ox 98.3 F 83 19 112/61 98 01/23/20 12:00 01/23/20 12:00 01/23/20 12:00 01/23/20 12:00 01/23/20 12:00 Intake & Output 01/22/20 01/23/20 01/24/20 06:59 06:59 06:59 Intake Total 1744 1270 Output Total 1250 1300 600 Balance 494 -30 -600 Weight 106.5 kg 103.9 kg General appearance: PRESENT: no acute distress, other - She states she is feeling better every day Respiratory exam: PRESENT: clear to auscultation gordon. ABSENT: rales, rhonchi, wheezes Cardiovascular exam: PRESENT: RRR. ABSENT: diastolic murmur, rubs, systolic murmur Neurological exam: PRESENT: alert, awake, oriented to person, oriented to place, oriented to time, oriented to situation, CN II-XII grossly intact. ABSENT: mot or sensory deficit Psychiatric exam: PRESENT: appropriate affect, normal mood. ABSENT: homicidal ideation, suicidal ideation Results Laboratory Results: 01/21/20 03:57 01/20/20 04:10 Impressions: Chest X-Ray 01/18/20 14:36 IMPRESSION: NO ACUTE RADIOGRAPHIC FINDING IN THE CHEST. Abdomen/Pelvis CT 01/18/20 16:47 IMPRESSION: 1. Cholelithiasis without secondary evidence of acute c holecystitis. 2. Distended urinary bladder. Recommend correlation for evidence of bowel obstruction. 3. Moderate hiatal hernia. 4. Chronic additional findings as above. Assessment and Plan - Diagnosis (1) Hypocalcemia Is this a current diagnosis for this admission?: Yes (2) Dehydration Is this a current diagnosis for this admission?: Yes (3) UTI (urinary tract infection) Qualifiers: Urinary tract infection type: acute cystitis Hematuria presence: without hematuria Qualified Code(s): N30.00 - Acute cystitis without hematuria Is this a current diagnosis for this admission?: No (4) Acute kidney injury Is this a current diagnosis for this admission?: Yes (6) Generalized weakness Is this a current diagnosis for this admission?: Yes (7) Sepsis Is this a current diagnosis for this admission?: Yes - Plan Summary Summary: She will be admitted to the hospital for gentle IV fluid hydration, IV antibiotics.. Resume home meds tomorrow when patient is more stable. Lactic acid levels normal 1.8. Potassium 3.3 BUN of 35 creatinine 2.68 GFR of 17, calcium 7.4 White blood cell count 18,700 H&H 8.2 23.8, which is not too far off for normal values Patient is medically stable to move to the floor 01/19/2020 Temperature 97.9, pulse is stable at 105, blood pressure 150/65, oxygen saturation is 99% at room air White blood cell count has come down to 15.6, hemoglobin is drifted down to 7.6 from 8.2. We will watch this closely over the next several days Chemistry panel will be repeated tomorrow Patient is getting Rocephin 1 g IV every 12 hours is also getting normal saline at 125/h. I have reconciled her home meds today Urine culture shows no growth in 24 hours Patient appears medically stable 01/20/2020 Vital signs are stable, blood pressure slightly high White count is coming down now at 11.2 hemoglobin is stabilized at 7.5 TSH is elevated 11.9. Will increase her Synthroid Chemistry panel is pending. Yesterday patient was given p.o. calcium as well as p.o. potassium Overall patient states she is feeling some better Patient is complaining of generalized weakness will ask physical therapy to see her. She states that she has been getting weaker even before she came into the hospital 1 blood culture is growing out gram-positive cocci urine culture shows no growth in 2 days In the emergency room it was thought that the patient may have a UTI but this does not appear to be the case. We will continue with IV Rocephin and IV fluids 01/21/2020 Vital signs remaine stable temperature 98.6 pulse 88 blood pressure 136/61 O2 sat 93% on room air White blood cell count continues to trend down today it is 10.9 hemoglobin has stabilized at 7.6 Serum glucose level when she came in was 103 yesterday it was 87. Fingerstick blood sugars this morning were slightly low at 60 but have since come up to 78. Patient was on no medications for diabetes prior to coming in. Electrolytes from today are pending with interest on the potassium and calcium levels Patient's Synthroid has been increased to 0.1 mg Patient's urine culture shows no growth, however 1 blood culture is positive. Patient is currently on IV Rocephin pending sensitivities Continue on current course with physical therapy to increase her overall strength. Continue IV antibiotics Patient did have a bowel movement yesterday 01/22/2020 Patient was given a list of home health agencies yesterday and her daughter was going to call them pick 1 out in anticipation for discharge Patient does not want to go to [facility] Patient states she is feeling much better This morning temperature 97.7 pulse 77 blood pressure 144/62, oxygen saturation 99% on room air CBC is normal, blood sugars are basically normal 1 out of 2 blood cultures is positive for strep para sanguinous. Patient is currently on IV Rocephin which it is sensitive to. According to the literature this can be treated with oral amoxicillin IV penicillin IV cephalosporins and IV vancomycin. Patient reportedly is allergic to penicillin although she has been tolerating Rocephin without any problems. It also appears to be sensitive to clindamycin, is what I will send the patient out to home on, 300 mg 3 times daily, for a total of a 10-day coverage including the Rocephin 01/23/2020 Temperature 97.9 pulse 85 blood pressure 149/72, O2 sat 98% on room air Labs will be rechecked tomorrow DC Kirk catheter today Of bed more today Possibly DC to home tomorrow Patient's daughter is looking at home health agencies - Time Time Spent with patient: 15-24 minutes
[2020-01-23] MEDS: TRAMADOL HCL 50 MG TABLET PO PRN (19:47)
[2020-01-23] MEDS: FAMOTIDINE 20 MG TABLET PO SCH (22:33)
[2020-01-24] MEDS: CEFTRIAXONE 1 GM/D5W RTU 1 GM/50 ML RTUPB IV SCH ×2 (05:07→17:15)
[2020-01-24] MEDS: HEPARIN SOD (PORCINE) 5,000 UNIT/ML 1 ML VIAL SUBCUT SCH ×3 (05:17→22:03)
[2020-01-24] MEDS: LEVOTHYROXINE SODIUM 0.1 MG TABLET PO SCH (05:17)
[2020-01-24 06:54] LABS: HEMATOCRIT 21.9 % (36.0-47.0); MEAN CORPUSCULAR HEMOGLOBIN 36.8 pg (27.0-33.4); MEAN CORPUSCULAR HGB CONC 34.6 g/dL (32.0-36.0); MEAN CORPUSCULAR VOLUME 106 fl (80-97); PLATELET COUNT 127 10^3/uL (150-450); RED BLOOD COUNT 2.07 10^6/uL (3.72-5.28); RED CELL DISTRIBUTION WIDTH 19.5 % (11.5-14.0); WHITE BLOOD COUNT 7.1 10^3/uL (4.0-10.5)
[2020-01-24 07:00] LABS: HEMOGLOBIN 7.6 g/dL (12.0-15.5)
[2020-01-24 07:25] LABS: ANION GAP 7 (5-19); BLOOD UREA NITROGEN 12 mg/dL (7-20); CALCIUM 9.8 mg/dL (8.4-10.2); CARBON DIOXIDE 23 mmol/L (22-30); CHLORIDE 104 mmol/L (98-107); GLUCOSE 79 mg/dL (75-110); POTASSIUM 5.6 mmol/L (3.6-5.0)
[2020-01-24 08:00] LABS: ABSOLUTE LYMPHOCYTES# (MANUAL) 4.3 10^3/uL (0.5-4.7); ABSOLUTE MONOCYTES # (MANUAL) 1.7 10^3/uL (0.1-1.4); BASOPHILS % (MANUAL) 0 % (0-2); EOSINOPHILS % (MANUAL) 0 % (0-6); LYMPHOCYTES % (MANUAL) 48 % (13-45); MONOCYTES % (MANUAL) 24 % (3-13); NUCLEATED RED BLOOD CELLS 2 /100 WBC (0); SEGMENTED NEUTROPHILS % (MAN) 7 % (42-78); TOTAL CELLS COUNTED 100
[2020-01-24 08:02] LABS: ANISOCYTOSIS 2+; POLYCHROMASIA SLIGHT
[2020-01-24 08:03] LABS: SMUDGE CELLS PRESENT
[2020-01-24 08:24] LABS: IMMATURE MONONUCLEAR% (MANUAL) 9 % (0)
[2020-01-24 08:26] LABS: PLATELET COMMENT DECREASED
[2020-01-24] MEDS: HYDROCHLOROTHIAZIDE 12.5 MG TABLET PO SCH (10:18)
[2020-01-24] MEDS: VALSARTAN 160 MG TABLET PO SCH (10:20)
[2020-01-24] MEDS: CALCIUM CARBONATE 600 MG TABLET PO SCH ×2 (10:20→17:21)
[2020-01-24] MEDS: ATENOLOL 50 MG TABLET PO SCH (10:21)
[2020-01-24] MEDS: FERROUS SULFATE 325 MG TABLET PO SCH ×2 (10:21→17:21)
[2020-01-24] MEDS: DOCUSATE SODIUM 100 MG CAPSULE PO SCH (10:21)
[2020-01-24] MEDS: POLYETHYLENE GLYCOL 3350 POWDER 17 GM/1 PACKET PO SCH (10:21)
[2020-01-24] MEDS: POTASSIUM CHLORIDE 20 MEQ PACKET PO SCH ×2 (10:22→17:27)
[2020-01-24] MEDS: CALCITRIOL 0.25 MCG CAPSULE PO SCH (10:25)
--- NOTE | 2020-01-24 15:26 | PDOC TRANSFER SUMMARY ---
Impression - Admit/DC Date/PCP Admission Date/Primary Care Provider: 01/18/20 16:24 MARLO MORALESDORIS BROWNE Discharge Date: 01/24/20 - Discharge Diagnosis (1) Hypocalcemia Is this a current diagnosis for this admission?: Yes (2) Dehydration Is this a current diagnosis for this admission?: Yes (3) UTI (urinary tract infection) Is this a current diagnosis for this admission?: No (4) Acute kidney injury Is this a current diagnosis for this admission?: Yes (5) Hypokalemia Is this a current diagnosis for this admission?: Yes (6) Generalized weakness Is this a current diagnosis for this admission?: Yes (7) Sepsis Is this a current diagnosis for this admission?: Yes - Assessment Summary: She will be admitted to the hospital for gentle IV fluid hydration, IV antibiotics.. Resume home meds tomorrow when patient is more stable. Lactic acid levels normal 1.8. Potassium 3.3 BUN of 35 creatinine 2.68 GFR of 17, c alcium 7.4 White blood cell count 18,700 H&H 8.2 23.8, which is not too far off for normal values Patient is medically stable to move to the floor 01/19/2020 Temperature 97.9, pulse is stable at 105, blood pressure 150/65, oxygen saturation is 99% at room air White blood cell count has come down to 15.6, hemoglobin is drifted down to 7.6 from 8.2. We will watch this closely over the next several days Chemistry panel will be repeated tomorrow Patient is getting Rocephin 1 g IV every 12 hours is also getting normal saline at 125/h. I have reconciled her home meds today Urine culture shows no growth in 24 hours Patient appears medically stable 01/20/2020 Vital signs are stable, blood pressure slightly high White count is coming down now at 11.2 hemoglobin is stabilized at 7.5 TSH is elevated 11.9. Will increase her Synthroid Chemistry panel is pending. Yesterday patient was given p.o. calcium as well as p.o. potassium Overall patient states she is feeling some better Patient is complaining of generalized weakness will ask physical therapy to see her. She states that she has been getting weaker even before she came into the hospital 1 blood culture is growing out gram-positive cocci urine culture shows no growth in 2 days In the emergency room it was thought that the patient may have a UTI but this does not appear to be the case. We will continue with IV Rocephin and IV fluids 01/21/2020 Vital signs remaine stable temperature 98.6 pulse 88 blood pressure 136/61 O2 sat 93% on room air White blood cell count continues to trend down today it is 10.9 hemoglobin has stabilized at 7.6 Serum glucose level when she came in was 103 yesterday it was 87. Fingerstick blood sugars this morning were slightly low at 60 but have since come up to 78. Patient was on no medications for diabetes prior to coming in. Electrolytes from today are pending with interest on the potassium and calcium levels Patient's Synthroid has been increased to 0.1 mg Patient's urine culture shows no growth, however 1 blood culture is positive. Patient is currently on IV Rocephin pending sensitivities Continue on current course with physical therapy to increase her overall strength. Continue IV antibiotics Patient did have a bowel movement yesterday 01/22/2020 Patient was given a list of home health agencies yesterday and her daughter was going to call them pick 1 out in anticipation for discharge Patient does not want to go to nursing home Patient states she is feeling much better This morning temperature 97.7 pulse 77 blood pressure 144/62, oxygen saturation 99% on room air CBC is normal, blood sugars are basically normal 1 out of 2 blood cultures is positive for strep para sanguinous. Patient is currently on IV Rocephin which it is sensitive to. According to the literature this can be treated with oral amoxicillin IV penicillin IV cephalosporins and IV vancomycin. Patient reportedly is allergic to penicillin although she has been tolerating Rocephin without any problems. It also appears to be sensitive to clindamycin, is what I will send the patient out to home on, 300 mg 3 times daily, for a total of a 10-day coverage including the Rocephin 01/23/2020 Temperature 97.9 pulse 85 blood pressure 149/72, O2 sat 98% on room air Labs will be rechecked tomorrow DC Kirk catheter today Of bed more today Possibly DC to home tomorrow Patient's daughter is looking at home health agencies 01/24/2020 Patient is being discharged to nursing home facility Evidently patient is too weak to go home and has been accepted Daughter is unable to care for her at home Patient will need to take her clindamycin 100 mg every 8 hours for 7 days, calcium carbonate 600 mg twice daily for 30 days and Synthroid 0.1 mg daily, addition to her regular medications Patient will need daily physical therapy - Additional Information Resuscitation Status: Do Not Resuscitate Discharge Diet: As Tolerated Discharge Activity: Balance Activity w/Rest, Walk Frequently Referrals: [facility] [Other] - 01/31/20 1:30 pm (WITH WILTON VICTOR) [facility] [Outside] Prescriptions: Calcium Carbonate [Caltrate 600 mg Tablet] 600 mg PO BID 30 Days #60 tablet Clindamycin HCl 300 mg PO Q8 7 Days #21 capsule Levothyroxine Sodium [Synthroid 0.1 mg Tablet] 0.1 mg PO Q6AM 90 Days #90 tablet Home Medications: Bisoprolol/Hydrochlorothiazide [Bisoprolol-Hctz 5-6.25 mg Tab] 1 each PO DAILY 11/17/18 Omeprazole 20 mg PO DAILY 11/17/18 Ferrous Sulfate [Feosol 325 mg Tablet] 325 mg PO BID #60 tablet 11/20/18 Calcitriol [Rocaltrol 0.5 mcg Capsule] 1 mcg PO DAILY 01/18/20 Tramadol HCl [Ultram] 50 mg PO BIDP PRN 01/18/20 Valsartan 320 mg PO DAILY 01/18/20 Acetaminophen [Tylenol 325 mg Tablet] 650 mg PO Q4HP PRN tablet 01/24/20 Calcium Carbonate [Caltrate 600 mg Tablet] 600 mg PO BID 30 Days #60 tablet 01/24/20 Clindamycin HCl 300 mg PO Q8 7 Days #21 capsule 01/24/20 Docusate Sodium [Colace 100 mg Capsule] 100 mg PO DAILY capsule 01/24/20 Levothyroxine Sodium [Synthroid 0.1 mg Tablet] 0.1 mg PO Q6AM 90 Days #90 tablet 01/24/20 Polyethylene Glycol 3350 [Miralax Powder 17 gm/Packet] 17 gm PO DAILY powd.pack 01/24/20 History of Present Illiness History of Present Illness: BRADLEY CORREA is a 79 year old female comes in with a 3-day history of weakness, generalized, decreased appetite decreased p.o. intake. History is given by the daughter who sees the patient frequently and granddaughter who actually lives with the patient. The family 2 days ago on Friday they called EMS because their mother was weak. MS saw the patient evaluated and just said that patient did not need to go to the emergency room. Today the patient was so weak her and today she was so weak she could not get out of bed. Patient has a history of UTIs a couple years ago where she acted this exactly like this. Patient also has been unable to void today due to decreased p.o. intake. Patient has a elevated white count 18,000 and creatinine is elevated to 2.68 normally 1.5 Will be admitted to the hospital for IV fluids and IV antibiotics. According to the daughter the mother is a DNR Physical Exam Vital Signs: Temp Pulse Resp BP Pulse Ox 99.4 F 74 16 146/72 H 99 01/24/20 12:00 01/24/20 12:00 01/24/20 12:00 01/24/20 12:00 01/24/20 12:00 Intake & Output 01/23/20 01/24/20 01/25/20 06:59 06:59 06:59 Intake Total 1270 552 Output Total 1300 1625 Balance -30 -1073 Weight 103.9 kg 103.1 kg Results Laboratory Results: WBC 7.1 10^3/uL (4.0-10.5) 01/24/20 06:01 RBC 2.07 10^6/uL (3.72-5.28) L 01/24/20 06:01 Hgb 7.6 g/dL (12.0-15.5) L 01/24/20 06:01 Hct 21.9 % (36.0-47.0) L 01/24/20 06:01 MCV 106 fl (80-97) H 01/24/20 06:01 MCH 36.8 pg (27.0-33.4) H 01/24/20 06:01 MCHC 34.6 g/dL (32.0-36.0) 01/24/20 06:01 RDW 19.5 % (11.5-14.0) H 01/24/20 06:01 Plt Count 127 10^3/uL (150-450) L 01/24/20 06:01 Lymph % (Auto) Not Reportable 01/24/20 06:01 [place] % (Auto) Not Reportable 01/24/20 06:01 Eos % (Auto) Not Reportable 01/24/20 06:01 Baso % (Auto) Not Reportable 01/24/20 06:01 Absolute Neuts (auto) Not Reportable 01/24/20 06:01 Absolute Lymphs (auto) Not Reportable 01/24/20 06:01 Absolute Monos (auto) Not Reportable 01/24/20 06:01 Absolute Eos (auto) Not Reportable 01/24/20 06:01 Absolute Basos (auto) Not Reportable 01/24/20 06:01 Total Counted 100 01/24/20 06:01 Seg Neutrophils % Not Reportable 01/24/20 06:01 Seg Neuts % (Manual) 7 % (42-78) L 01/24/20 06:01 Lymphocytes % (Manual) 48 % (13-45) H 01/24/20 06:01 Atypical Lymphs % 12 % (0) 01/24/20 06:01 Monocytes % (Manual) 24 % (3-13) H 01/24/20 06:01 Eosinophils % (Manual) 0 % (0-6) 01/24/20 06:01 Basophils % (Manual) 0 % (0-2) 01/24/20 06:01 Myelocytes % 4 % (0) H 01/21/20 03:57 Immature Leukocytes % 9 % (0) H 01/24/20 06:01 Abs Neuts (Manual) 0.5 10^3/uL (1.7-8.2) L 01/24/20 06:01 Abs Lymphs (Manual) 4.3 10^3/uL (0.5-4.7) 01/24/20 06:01 Abs Monocytes (Manual) 1.7 10^3/uL (0.1-1.4) H 01/24/20 06:01 Absolute Eos (Manual) 0.0 10^3/uL (0.0-0.6) 01/24/20 06:01 Abs Basophils (Manual) 0.0 10^3/uL (0.0-0.2) 01/24/20 06:01 Nucleated RBCs 2 /100 WBC (0) 01/24/20 06:01 Smudge Cells PRESENT 01/24/20 06:01 Platelet Comment DECREASED 01/24/20 06:01 Polychromasia SLIGHT 01/24/20 06:01 Poikilocytosis SLIGHT 01/20/20 04:10 Anisocytosis 2+ 01/24/20 06:01 Macrocytosis 2+ 01/24/20 06:01 Tear Drop Cells SLIGHT 01/20/20 04:10 Ovalocytes SLIGHT 01/20/20 04:10 PT 16.8 SEC (11.4-15.4) H 01/19/20 04:03 INR 1.35 01/19/20 04:03 APTT 31.3 SEC (23.5-35.8) 01/19/20 04:03 VBG pH 7.46 (7.30-7.42) H 01/18/20 14:58 VBG pCO2 36.8 mmHg (35-63) 01/18/20 14:58 VBG HCO3 25.5 mmol/L (20-32) 01/18/20 14:58 VBG Base Excess 1.8 mmol/L 01/18/20 14:58 Sodium 133.6 mmol/L (137-145) L 01/24/20 06:01 Potassium 5.6 mmol/L (3.6-5.0) H 01/24/20 06:01 Chloride 104 mmol/L (98-107) 01/24/20 06:01 Carbon Dioxide 23 mmol/L (22-30) 01/24/20 06:01 Anion Gap 7 (5-19) 01/24/20 06:01 BUN 12 mg/dL (7-20) 01/24/20 06:01 Creatinine 1.50 mg/dL (0.52-1.25) H 01/24/20 06:01 Est GFR ( Amer) 40 (>60) L 01/24/20 06:01 Est GFR (MDRD) Non-Af 33 (>60) L 01/24/20 06:01 Glucose 79 mg/dL (75-110) 01/24/20 06:01 POC Glucose 107 mg/dL (70-110) 01/24/20 11:44 Lactic Acid 1.4 mmol/L (0.7-2.1) 01/18/20 21:04 Calcium 9.8 mg/dL (8.4-10.2) 01/24/20 06:01 Magnesium 1.9 mg/dL (1.6-2.3) 01/19/20 04:03 Total Bilirubin 0.6 mg/dL (0.2-1.3) 01/18/20 14:40 Direct Bilirubin 0.2 mg/dL (0.0-0.4) 01/18/20 14:40 Neonat Total Bilirubin Not Reportable 01/18/20 14:40 Neonat Direct Bilirubin Not Reportable 01/18/20 14:40 Neonat Indirect Bili Not Reportable 01/18/20 14:40 AST 48 U/L (14-36) H 01/18/20 14:40 ALT 29 U/L (<35) 01/18/20 14:40 Alkaline Phosphatase 89 U/L (38-126) 01/18/20 14:40 Total Protein 7.5 g/dL (6.3-8.2) 01/18/20 14:40 Albumin 2.6 g/dL (3.5-5.0) L 01/18/20 14:40 TSH 11.90 uIU/mL (0.47-4.68) H 01/20/20 04:10 Urine Color YELLOW 01/18/20 18:10 Urine Appearance SLIGHTLY-CLOUDY 01/18/20 18:10 Urine pH 5.0 (5.0-9.0) 01/18/20 18:10 Ur Specific [place] 1.017 01/18/20 18:10 Urine Protein 30 mg/dL (NEGATIVE) H 01/18/20 18:10 Urine Glucose (UA) NEGATIVE mg/dL (NEGATIVE) 01/18/20 18:10 Urine Ketones NEGATIVE mg/dL (NEGATIVE) 01/18/20 18:10 Urine Blood MODERATE (NEGATIVE) H 01/18/20 18:10 Urine Nitrite (Reflex) NEGATIVE (NEGATIVE) 01/18/20 18:10 Urine Bilirubin NEGATIVE (NEGATIVE) 01/18/20 18:10 Urine Urobilinogen NEGATIVE mg/dL (<2.0) 01/18/20 18:10 Leukocyte Esterase Rfl NEGATIVE (NEGATIVE) 01/18/20 18:10 Urine RBC (Auto) 1 /HPF 01/18/20 18:10 U Hyaline Cast (Auto) 1 /LPF 01/18/20 18:10 Urine WBC (Reflex) 2 /HPF 01/18/20 18:10 Squamous Epi Cells Auto <1 /HPF 01/18/20 18:10 Urine Mucus (Auto) RARE /LPF 01/18/20 18:10 Urine Ascorbic Acid NEGATIVE (NEGATIVE) 01/18/20 18:10 Slides for Path Review SEE COMMENT 01/24/20 06:01 Impressions: Chest X-Ray 01/18/20 14:36 IMPRESSION: NO ACUTE RADIOGRAPHIC FINDING IN THE CHEST. Abdomen/Pelvis CT 01/18/20 16:47 IMPRESSION: 1. Cholelithiasis without secondary evidence of acute cholecystitis. 2. Distended urinary bladder. Recommend correlation for evidence of bowel obstruction. 3. Moderate hiatal hernia. 4. Chronic additional findings as above. Stroke Is this a Stroke Patient?: No Acute Heart Failure - Is this a Heart Failure Patient?: No
[2020-01-24] MEDS ORDERED: CLINDAMYCIN HCL 150 MG CAPSULE PO ONE (17:30)
[2020-01-24] MEDS: FAMOTIDINE 20 MG TABLET PO SCH (22:07)
[2020-01-24 23:46] VITALS: BP 138/69
[2020-01-25] MEDS: CEFTRIAXONE 1 GM/D5W RTU 1 GM/50 ML RTUPB IV SCH (05:18)
[2020-01-25] MEDS: HEPARIN SOD (PORCINE) 5,000 UNIT/ML 1 ML VIAL SUBCUT SCH (05:18)
[2020-01-25] MEDS: LEVOTHYROXINE SODIUM 0.1 MG TABLET PO SCH (05:20)
== END 2020-01-25 08:01 | DRG 684 ==
LOC: ER 14:26 → EH 16:24 → 5 18:50
PROVIDERS: ADMIT Hospitalist; ATTEND Hospitalist
DX: N17.9 Acute kidney failure, unspecified (principal); E86.0 Dehydration; E78.5 Hyperlipidemia, unspecified; E03.9 Hypothyroidism, unspecified; B95.4 Other streptococcus as the cause of diseases classified elsewhere; I10 Essential (primary) hypertension; K21.9 Gastro-esophageal reflux disease without esophagitis; Z87.891 Personal history of nicotine dependence; Z88.0 Allergy status to penicillin; Z66 Do not resuscitate; Z88.1 Allergy status to other antibiotic agents; Z91.013 Allergy to seafood; E83.51 Hypocalcemia; Z79.890 Hormone replacement therapy
CPT/HCPCS: 36415; 71045; 74176; 80048; 80053; 81001; 82803; 82962; 83605; 83735; 84443; 85025; 85610; 85730; 87040; 87077; 87086; 87186; 93005; 93010; 99285; J0610; J0696; J1644; J2405; J3490; J7030